=== PATIENT | male | born 1930 | race Caucasian/White ===

== ENCOUNTER 2019-11-28 16:45 | Inpatient (IN) | payer OTHER ==
[~2019-11-28] VITALS: Ht 193 cm; Wt 108.9 kg
[2019-11-28 17:00] VITALS: BP 159/87
--- NOTE | 2019-11-28 19:30 | NUR ---
The patient, EDD FRANKLIN, 89 y/o, M admitted by BUCKY AGUILERA MD, was given written information regarding hospital policies, unit procedures and contact persons. Valuables were checked and inventoried.
--- NOTE | 2019-11-28 20:00 | NUR ---
Nursing Note: Pt lying in bed with blanket over his head when I entered the room. Pt A/O but forgetful, calm, pleasant, and very talkative. Pt answering questions appropriately although he is [place]. Pt has no teeth, does not wear dentures or hearing aids but does wear glasses. Pt reports that he would like to "learn to walk with a walker" while he is here, also reports that he has a Master's Degree in communication and he spent 40 years in the [employer]. Pt currently denies SI but does report that he has been more depressed over the past couple of months and is angry with his sister for selling his house and car. Pt has wounds and excoriation to his coccyx, pictures obtained using the KISS protocol and wound consult ordered. Pt incontinent of B/B, wearing pull up brief currently. COVID swab obtained and sent to lab for testing. Orders obtained from Dr. Chu for admission and medications. Pt compliant with HS medications administered whole. Pt currently resting quietly in bed with eyes closed.
[2019-11-28] MEDS ORDERED: ACETAMINOPHEN 325 MG TABLET PO PRN (21:15)
[2019-11-28] MEDS ORDERED: traZODone 50 MG TABLET. PO PRN (21:15)
[2019-11-28] MEDS ORDERED: TRAM50TA PO (21:23)
[2019-11-28] MEDS ORDERED: ACET325T21 PO (21:23)
[2019-11-28] MEDS ORDERED: MULT-245 PO (21:23)
[2019-11-28] MEDS ORDERED: CLOT15CR23 TP (21:23)
[2019-11-28] MEDS ORDERED: CITA10TA8 PO (21:23)
[2019-11-28] MEDS ORDERED: TAMS0.4C97 PO (21:23)
[2019-11-28] MEDS ORDERED: TRAZ-120 PO ×2 (21:23)
[2019-11-28] MEDS ORDERED: MAG HYDROX/AL HYDROX/SIMETH 30 ML ORAL.SUSP PO PRN (21:30)
[2019-11-28] MEDS ORDERED: MAGNESIUM HYDROXIDE 2,400 MG/30 ML ORAL.SUSP. PO PRN (21:30)
[2019-11-28] MEDS ORDERED: METHYL SALICYLATE/MENTHOL TOPICAL OINTMENT 57GM TUBE. TP PRN (21:30)
--- NOTE | 2019-11-28 21:57 | PDOC ---
Exam Note: Nick Note: Please also refer to the separate dictated note~for this date of service dictated separately.~Patient seen individually. Discussed the patient with Nursing staff reviewed the chart.~Reviewed interim history and current functioning. Reviewed vital signs,~Labs/ Radiology~and current medications noted below. Continue current treatment with the changes noted in the dictated addendum note Assessment: Vital Signs/I&O: Vital Signs Date Time Temp Pulse Resp B/P (MAP) Pulse Ox O2 Delivery O2 Flow Rate FiO2 11/28/19 17:00 98.2 76 18 159/87 (111) 98 Room Air Current Medications: I have reviewed the current psychotropics carefully including drug interactions. Risk benefit ratio favors no change other than as noted in my dictated progress note. RACHEL SHAH MD Nov 28, 2019 21:57
[2019-11-28] MEDS ORDERED: traZODone 50 MG TABLET. PO SCH (22:00)
[2019-11-28] MEDS ORDERED: Influenza vaccine per PROTOCOL. MC PRN (23:00)
[2019-11-29] MEDS: traMADol 50 MG TABLET PO PRN ×2 (05:08→23:36)
--- NOTE | 2019-11-29 05:22 | EKG ---
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
[2019-11-29 06:04] VITALS: BP 120/58
[2019-11-29 06:06] LABS: BACTERIA,URINE MANY /HPF (0-FEW); BILIRUBIN,URINE NEG (NEG); CLARITY,URINE CLEAR; COLOR,URINE YELLOW; GLUCOSE,URINE NEG (NEG); NITRITE,URINE NEG (NEG); RBC,URINE 0 /HPF (0-2); SQUAMOUS EPITHELIAL CELL,UR OCC /LPF; UROBILINOGEN,URINE 0.2 mg/dL (0.2 mg/dL)
[2019-11-29 06:34] LABS: BASO # 0.1 x10^3/uL (0.0-0.2); BASO % 1 % (0-3); EOS # 0.2 x10^3/uL (0.0-0.7); EOS % 4 % (0-3); HEMATOCRIT 38.2 % (39.0-53.0); HEMOGLOBIN 12.7 g/dL (13.0-17.5); LYMPH # 1.5 x10^3/uL (1.0-4.8); LYMPH % 29 % (24-48); MEAN CORPUSCULAR HEMOGLOBIN 33 pg (25-35); MEAN CORPUSCULAR HGB CONC 33 g/dL (31-37); MEAN CORPUSCULAR VOLUME 98 fL (79-100); MONO # 0.5 x10^3/uL (0.0-1.1); MONO % 9 % (0-9); NEUT # 2.9 x10^3uL (1.8-7.7); NEUT % 57 % (31-73); PLATELET COUNT 137 x10^3/uL (140-400); RED BLOOD COUNT 3.88 x10^6/uL (4.30-5.70); WHITE BLOOD COUNT 5.1 x10^3/uL (4.0-11.0)
[2019-11-29 06:49] LABS: ALBUMIN 3.1 g/dL (3.4-5.0); ALBUMIN/GLOBULIN RATIO 0.8 (1.0-1.7); CALCIUM 8.4 mg/dL (8.5-10.1); CREATININE 1.2 mg/dL (0.7-1.3); GFR 57.3; POTASSIUM 3.6 mmol/L (3.5-5.1); TOTAL BILIRUBIN 1.3 mg/dL (0.2-1.0)
--- NOTE | 2019-11-29 08:42 | NUR ---
LUCIA contacted Talia, planning coordinator at the [facility], who indicated that Moe's entire stay no mater what unit will be covered under the same authorization/consult number as an "episode of care." Consult number is [id number]. Talia will call LUCIA back this afternoon once authorization number is issued. Addendum: 11/29/19 at 1532 by ALLEN MYERS Talia phoned back and provided authorization number as [id number]. LUCIA notified registration.
[2019-11-29] MEDS ORDERED: CITALOPRAM 10 MG TABLET. PO SCH (09:00)
[2019-11-29] MEDS ORDERED: FLU VACC QS 2020-21(6MOS+)/PF 0.5 ML SYRINGE. VAX IM ONE (09:00)
[2019-11-29] MEDS: MULTIVITAMIN with MINERAL TABLET. PO SCH (09:23)
[2019-11-29] MEDS: CLOTRIMAZOLE 1% TOPICAL CREAM 30GM TUBE. TP SCH ×2 (09:23→20:10)
[2019-11-29] MEDS: TAMSULOSIN 0.4 MG CAP.ER.24H. PO SCH (09:23)
--- NOTE | 2019-11-29 10:28 | HP ---
ADMIT DATE: 11/28/2019 ADMISSION HISTORY AND PHYSICAL ATTENDING PHYSICIAN: Dr. Aguilera. HISTORY OF PRESENT ILLNESS: The patient is a pleasant 89-year-old gentleman from [facility]. [facility] He [facility] to go to the [facility]. He is admitted to the medical floor for COVID-19 swab, a 48-hour hold until the tests are negative. We are happy to help out and see him for a medical evaluation. He is pleasantly confused. He is retired from the [employer]. 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 PAST MEDICAL HISTORY: Significant for diabetes, benign prostatic hypertrophy, degenerative arthritis, multiple surgeries on his knees and ankle, hyperlipidemia and dementia. He has been aggressive, uncooperative, somewhat paranoid, suicidal ideations and as well homicidal ideation, no active plans. He is declining care. He was scheduled to go to the Behavioral Unit. He has been seen in the [place] [facility] in the past. ALLERGIES: He has no known drug allergies. CURRENT MEDICATIONS: Include Tylenol, Celexa 15 mg daily, multivitamin, Flomax and trazodone at bedtime. SOCIAL HISTORY: He is a nonsmoker, nondrinker. He has had multiple surgeries on his knees and on his ankle. FAMILY HISTORY: Unobtainable. REVIEW OF SYSTEMS: Unobtainable. He was cooperative and fairly alert when I saw him, but remains confused. OBJECTIVE FINDINGS: GENERAL: When I saw him, this was a pleasant elderly gentleman. INITIAL VITAL SIGNS: Showed a blood pressure of 120/58 mmHg, pulse is 76 and regular, temperature 98.2 degrees Fahrenheit, oxygen saturation 95% on room air. HEENT: Head is without trauma. Pupils are reactive. Sclerae nonicteric. The oropharynx is clear. NECK: Supple. No bruits. LUNGS: Clear. CARDIOVASCULAR: Showed regular heart tones. No gallops. ABDOMEN: Soft, obese, protuberant. No organomegaly. Bowel sounds are normoactive. EXTREMITIES: Showed degenerative changes of both knees and ankles. There is no swelling or edema. NEUROLOGIC: Focally intact. Speech is fluent. Cranial nerves are intact. PERTINENT LABORATORY STUDIES: His hemoglobin is maintained at 12.7 g/dL with a white count of 5100. Electrolytes are within normal range. Nonfasting blood sugar 109. Transaminases were all within normal range. Creatinine is 1.2 mg/dL. ASSESSMENT: 1. This 89-year-old gentleman has behavioral issues related to dementia. He is from a correction in [place], [place]. 2. Suicidal ideations without any active plans. 3. Degenerative arthritis. 4. Essential hypertension. 5. Benign prostatic hypertrophy. PLAN: 1. The home meds were continued. 2. We shall await for the COVID swab test. 3. He will go to the [facility] when cleared. BUCKY AGUILERA MD DR: KATHERIN/hayley JOB#: [id number] / [id number] RACHEL Fernández MD
[2019-11-29 11:11] VITALS: BP 108/66
[2019-11-29 14:47] LABS: THYROID STIM HORMONE (TSH) 0.89 uIU/mL (0.358-3.740)
[2019-11-29 15:00] VITALS: BP 104/58
--- NOTE | 2019-11-29 16:26 | NUR ---
Wound Care Wound Type/Assessment: Rash to buttocks, Pt has maceration and IAD to bilateral buttocks. Red and blanchable. Treatment Recommendations/Plan: Applied A&D ointment, reapply BID and PRN Education provided: PU prevention, WC POC Offloading surface/device: TQ2H Recommended Referrals/Tests: none Discharge Recommendations for dressings: continue as above noted
[2019-11-29] MEDS ORDERED: VITS A & D/LANOLIN TOPICAL OINTMENT 42GM TUBE. TP PRN (16:30)
[2019-11-29] MEDS ORDERED: traZODone 50 MG TABLET. PO PRN (19:15)
[2019-11-29] MEDS: VITS A & D/LANOLIN TOPICAL OINTMENT 42GM TUBE. TP SCH (20:09)
[2019-11-29] MEDS: NYSTATIN TOPICAL POWDER 15GM BOTTLE. TP SCH (20:10)
--- NOTE | 2019-11-29 20:38 | CONS ---
DATE OF CONSULTATION: 11/28/2019 PSYCHIATRIC CONSULTATION This is late entry, date of service 11/28/2019, covers elements not covered in my initial note. I discussed with nursing staff, reviewed the chart, previously discussed with Nahomy Marcus, software development coordinator after the patient was referred to us from the [facility] in [place] due to suicidal ideation, homicidal ideation while he was residing at the [facility]. The patient appeared more depressed, hopeless, helpless, worthless, was threatening to kill his sister who was disposing of his property. He was aggressive towards uncooperative, refusing cares and meals, paranoid. He had failed outpatient psychiatric interventions resulting in this referral. CHIEF COMPLAINT: "Yes, I get angry." The patient was admitted to the custodial unit per Dr. Chu to be tested negative for COVID before he could transition to the [facility] and I have been asked to consult. HISTORY OF PRESENT ILLNESS: The patient has a history of worsening symptoms of depression, paranoia, marked agitation, aggression, threatening to end his life and to kill his sister who is his power of licensed social worker. He is reasonably oriented and is frustrated living at the halfway while his belongings are being sold. He has had sleep and appetite changes. No clear history of bipolar disorder. PAST PSYCHIATRIC HISTORY: As above. MEDICAL HISTORY: Positive for type 2 diabetes mellitus, diet controlled; BPH; osteoarthritis; hard of hearing. CODE STATUS: DNR. DRUG ALLERGIES: Negative. ACCU-CHEKS: Negative. CURRENT PSYCHOTROPICS: Celexa 5 mg a day, increasing to 10 mg a day; trazodone 50 mg at bedtime and 25 mg at bedtime p.r.n. FAMILY HISTORY: Noncontributory. SOCIAL HISTORY: No history of alcohol, drug abuse, physical, sexual or elder abuse. He is not known to be a perpetrator. REACTION TO HOSPITALIZATION: The patient accepting of it. ASSETS: Stable living at the halfway and support from the [place]. REVIEW OF SYSTEMS: Ambulation impaired, in wheelchair. No CV, , pulmonary, eye, ENT system symptoms on review. He is hard of hearing. MENTAL STATUS EXAMINATION: The patient is oriented to himself. Speech is coherent, has some latency. Abstraction fair, computation impaired, language function intact, attention span short. Mood and affect depressed, anxious, paranoid. No active suicidal or homicidal ideation when I questioned him in evening of 11/28/2019. IMPRESSION: Major depressive disorder with psychotic features; impulse control disorder; anxiety disorder, unspecified. Rest as above. RECOMMENDATIONS: From a psychiatric standpoint, continue current medications. Observe baseline, adjust as clinically indicated. Have the COVID negative screen confirmed and then transition into the [facility]. Rest will be determined once he arrives on the [facility]. RACHEL SHAH MD DR: GARETT/hayley JOB#: [id number] / [id number]
[2019-11-29] MEDS ORDERED: MIRTAZAPINE ODT 15 MG TAB.RAPDIS. PO SCH (21:00)
[2019-11-29 21:34] VITALS: BP 107/64
--- NOTE | 2019-11-29 22:33 | PDOC ---
Exam Note: Nick Note: Please also refer to the separate dictated note~for this date of service dictated separately.~Patient seen individually. Discussed the patient with Nursing staff reviewed the chart.~Reviewed interim history and current functioning. Reviewed vital signs,~Labs/ Radiology~and current medications noted below. Continue current treatment with the changes noted in the dictated addendum note Assessment: Vital Signs/I&O: Vital Signs Date Time Temp Pulse Resp B/P (MAP) Pulse Ox O2 Delivery O2 Flow Rate FiO2 11/29/19 21:34 98.0 80 18 107/64 (78) 95 Room Air I & O 11/28/19 11/28/19 11/29/19 15:00 23:00 07:00 Output Total 400 ml Balance -400 ml Labs: Laboratory Tests Test 11/29/19 05:20 11/29/19 06:20 Urine Collection Type Unknown Urine Color Yellow Urine Clarity Clear Urine pH 5.5 Urine Specific [place] 1.025 Urine Protein Neg (NEG-TRACE) Urine Glucose (UA) Neg mg/dL (NEG) Urine Ketones (Stick) Neg mg/dL (NEG) Urine Blood Mod (NEG) Urine Nitrite Neg (NEG) Urine Bilirubin Neg (NEG) Urine Urobilinogen Dipstick 0.2 mg/dL (0.2 mg/dL) Urine Leukocyte Esterase Trace (NEG) Urine RBC 0 /HPF (0-2) Urine WBC 5-10 /HPF (0-4) Urine Squamous Epithelial Cells Occ /LPF Urine Bacteria Many /HPF (0-FEW) White Blood Count 5.1 x10^3/uL (4.0-11.0) Red Blood Count 3.88 x10^6/uL (4.30-5.70) L Hemoglobin 12.7 g/dL (13.0-17.5) L Hematocrit 38.2 % (39.0-53.0) L Mean Corpuscular Volume 98 fL (79-100) Mean Corpuscular Hemoglobin 33 pg (25-35) Mean Corpuscular Hemoglobin Concent 33 g/dL (31-37) Red Cell Distribution Width 13.0 % (11.5-14.5) Platelet Count 137 x10^3/uL (140-400) L Neutrophils (%) (Auto) 57 % (31-73) Lymphocytes (%) (Auto) 29 % (24-48) Monocytes (%) (Auto) 9 % (0-9) Eosinophils (%) (Auto) 4 % (0-3) H Basophils (%) (Auto) 1 % (0-3) Neutrophils # (Auto) 2.9 x10^3uL (1.8-7.7) Lymphocytes # (Auto) 1.5 x10^3/uL (1.0-4.8) Monocytes # (Auto) 0.5 x10^3/uL (0.0-1.1) Eosinophils # (Auto) 0.2 x10^3/uL (0.0-0.7) Basophils # (Auto) 0.1 x10^3/uL (0.0-0.2) D-Dimer (Noni) 9.14 mg/L (0.00-0.50) H Sodium Level 141 mmol/L (136-145) Potassium Level 3.6 mmol/L (3.5-5.1) Chloride Level 106 mmol/L (98-107) Carbon Dioxide Level 25 mmol/L (21-32) Anion Gap 10 (6-14) Blood Urea Nitrogen 11 mg/dL (8-26) Creatinine 1.2 mg/dL (0.7-1.3) Estimated GFR (Cockcroft-Gault) 57.3 BUN/Creatinine Ratio 9 (6-20) Glucose Level 109 mg/dL (70-99) H Calcium Level 8.4 mg/dL (8.5-10.1) L Magnesium Level 2.0 mg/dL (1.8-2.4) Iron Level 80 ug/dL (65-175) Total Iron Binding Capacity 216 ug/dL (250-450) L Iron Saturation 37 % (15-34) H Total Bilirubin 1.3 mg/dL (0.2-1.0) H Aspartate Amino Transferase (AST) 17 U/L (15-37) Alanine Aminotransferase (ALT) 14 U/L (16-63) L Alkaline Phosphatase 67 U/L (46-116) Total Protein 7.0 g/dL (6.4-8.2) Albumin 3.1 g/dL (3.4-5.0) L Albumin/Globulin Ratio 0.8 (1.0-1.7) L Triglycerides Level 75 mg/dL (0-150) Cholesterol Level 123 mg/dL (0-200) LDL Cholesterol, Calculated 68 mg/dL (0-100) VLDL Cholesterol, Calculated 15 mg/dL (0-40) Non-HDL Cholesterol Calculated 83 mg/dL (0-129) HDL Cholesterol 40 mg/dL (40-60) Cholesterol/HDL Ratio 3.0 Vitamin B12 Level 475 pg/mL (247-911) 25-Hydroxy Vitamin D Total 45.7 ng/mL (30-100) Thyroid Stimulating Hormone (TSH) 0.890 uIU/mL (0.358-3.740) Treponema pallidum Antibody Nonreactive (Nonreactive) Current Medications: Meds: Current Medications Medications (Trade) Dose Ordered Sig/Jovita Route PRN Reason Start Time Stop Time Status Last Admin Dose Admin Citalopram Hydrobromide (CeleXA) 5 mg DAILY PO 11/29/19 09:00 11/29/19 19:13 DC 11/29/19 09:23 Clotrimazole (Lotrimin) 1 lonny BID TP 11/29/19 09:00 11/29/19 20:10 Tamsulosin HCl (Flomax) 0.4 mg DAILY PO 11/29/19 09:00 11/29/19 09:23 Multivitamins/ Calcium (Thera-M Plus) 1 tab DAILY PO 11/29/19 09:00 11/29/19 09:23 Influenza Virus Vaccine Quadrival (Fluzone Quad Syringe) 0.5 ml ONCE ONCE VAX IM 11/29/19 09:00 11/29/19 09:01 DC 11/29/19 09:25 Nystatin (Nystop) 1 lonny BID TP 11/29/19 21:00 11/29/19 20:10 Vitamin A/Vitamin D (Vitamin A & D Ointment) 1 lonny BID TP 11/29/19 21:00 11/29/19 20:09 Trazodone HCl (Desyrel) 50 mg PRN QHS PRN PO insomnia 11/29/19 19:15 11/29/19 20:09 Mirtazapine (Remeron Paula-Tab) 7.5 mg QHS PO 11/29/19 21:00 11/29/19 20:10 I have reviewed the current psychotropics carefully including drug interactions. Risk benefit ratio favors no change other than as noted in my dictated progress note. Diagnosis: Problems: (1) Major depressive disorder with psychotic features (2) Anxiety disorder, unspecified (3) Impulse control disorder, unspecified RACHEL SHAH MD Nov 29, 2019 22:33
[2019-11-29 23:06] LABS: HEMOGLOBIN A1C 6.2 % (4.8-5.6); THYROXINE 6.7 ug/dL (4.5-12.0)
--- NOTE | 2019-11-29 23:59 | NUR ---
Patient is awake in bed on assumption of care. He is in pleasant spirits. Calm, cooperative and compliant with cares, assessments and medications taken whole. A&D ointment applied to coccyx area per wound care recommendation. Patient cooperative with turning and participating. States "They have been putting some medicine on that area and now it just tingles instead of hurting." Patient positioned on his side to offset pressure on the area. No agitation. Patient denies any SI/HI. Complained of pain in bilateral legs and requested pain medicine. Tramadol given at 2330, pending effect. Patient remains awake in his room at present time. Will continue to monitor.
--- NOTE | 2019-11-30 06:36 | PDOC ---
Exam Note: Nick Note: This note is a late entry for 11/29/2019 covers elements not covered in my initial note. Subjective: The patient was reviewed on telehealth rounds in the evening of 11/29/2019 with Mike MCKEON. Discussed with nursing staff, reviewed the chart. The patient has been doing better. Denies suicidal ideation. He remains somewhat withdrawn. Review of Systems: No CV, , pulmonary, eye system symptoms on review. Gait unsteady in wheelchair. He is heard of hearing. Mental Status Exam: Reasonably oriented. Speech is coherent. Abstraction fair. Computation impaired. Language function impaired. Mood and affect depressed. Laboratory Data: Reviewed. Impression: Major depressive disorder. Anxiety disorder unspecified Plan: Change Celexa to Zoloft 50 mg a day. Change trazodone 50mg h.s. to 50 mg h.s. p.r.n. insomnia and start Remeron 7.5 mg p.o. h.s. We will make further adjustments as clinically indicated. Assessment: Vital Signs/I&O: Vital Signs Date Time Temp Pulse Resp B/P (MAP) Pulse Ox O2 Delivery O2 Flow Rate FiO2 11/29/19 23:36 Room Air 11/29/19 21:34 98.0 80 18 107/64 (78) 95 I & O 0 11/29/19 11/29/19 11/30/19 15:00 23:00 07:00 Intake Total 680 ml 720 ml 0 ml Balance 680 ml 720 ml 0 ml Current Medications: Meds: Current Medications Medications (Trade) Dose Ordered Sig/Jovita Route PRN Reason Start Time Stop Time Status Last Admin Dose Admin Citalopram Hydrobromide (CeleXA) 5 mg DAILY PO 11/29/19 09:00 11/29/19 19:13 DC 11/29/19 09:23 Clotrimazole (Lotrimin) 1 lonny BID TP 11/29/19 09:00 11/29/19 20:10 Tamsulosin HCl (Flomax) 0.4 mg DAILY PO 11/29/19 09:00 11/29/19 09:23 Multivitamins/ Calcium (Thera-M Plus) 1 tab DAILY PO 11/29/19 09:00 11/29/19 09:23 Influenza Virus Vaccine Quadrival (Fluzone Quad Syringe) 0.5 ml ONCE ONCE VAX IM 11/29/19 09:00 11/29/19 09:01 DC 11/29/19 09:25 Nystatin (Nystop) 1 lonny BID TP 11/29/19 21:00 11/29/19 20:10 Vitamin A/Vitamin D (Vitamin A & D Ointment) 1 lonny BID TP 11/29/19 21:00 11/29/19 20:09 Trazodone HCl (Desyrel) 50 mg PRN QHS PRN PO insomnia 11/29/19 19:15 11/29/19 20:09 Mirtazapine (Remeron Paula-Tab) 7.5 mg QHS PO 11/29/19 21:00 11/29/19 20:10 I have reviewed the current psychotropics carefully including drug interactions. Risk benefit ratio favors no change other than as noted in my dictated progress note. Diagnosis: Problems: (1) Impulse control disorder, unspecified (2) Anxiety disorder, unspecified (3) Major depressive disorder with psychotic features RACHEL SHAH MD Nov 30, 2019 06:36
[2019-11-30 06:41] VITALS: BP 118/61
--- NOTE | 2019-11-30 06:47 | NUR ---
Pt was pleasant in all interactions throughout shift. Pt was in bed and slept other than when I entered the room to assess vital signs or perform repositioning. When turning pt. was able to turn self side to side with minimal assistance. During corinna care and brief changes Pt. had bilateral redness in groin but skin was intact. Cleansed with green incontinence wipes and allowed to dry before applying more niastatin powder. A&D ointment was applied to pt. backside between cheeks. Skin was broken with some bleeding but was mostly scabbed over. light blood spots were seen on the green incontinence wipes after wiping pt. Pt. stated "my bottom feels much better than it did. It doesn't hurt anymore but it does tingle" RN was present and is aware. Pt. called at one point in the telesales specialist and was complaining of pain in right leg and requested a pain pill from nurse, I notified RN at that time.
[2019-11-30] MEDS: TAMSULOSIN 0.4 MG CAP.ER.24H. PO SCH (08:40)
[2019-11-30] MEDS: MULTIVITAMIN with MINERAL TABLET. PO SCH (08:40)
[2019-11-30] MEDS: NYSTATIN TOPICAL POWDER 15GM BOTTLE. TP SCH (08:41)
[2019-11-30] MEDS: CLOTRIMAZOLE 1% TOPICAL CREAM 30GM TUBE. TP SCH (08:41)
[2019-11-30] MEDS: VITS A & D/LANOLIN TOPICAL OINTMENT 42GM TUBE. TP SCH (08:41)
[2019-11-30] MEDS ORDERED: SERTRALINE 50 MG TABLET. PO SCH (09:00)
--- NOTE | 2019-11-30 10:21 | NUR ---
Pt is cooperative, compliant and calm but needs frequent reminders for safety. He is compliant with his medication and assessment. No agitation, no aggression, no hallucinations or delusions noted. Denies SI/HI.
--- NOTE | 2019-11-30 12:17 | PN ---
DATE: 11/30/2019 ATTENDING PHYSICIAN: Dr. Aguilera. SUBJECTIVE: No new complaints. He is alert, eating lunch. Appetite is fair. OBJECTIVE FINDINGS: VITAL SIGNS: Blood pressure today is 118/61 mmHg, temperature is 97.9 degrees Fahrenheit, he is on room air and saturation is 93%. HEENT: Head is without trauma. Pupils are reactive. Sclerae nonicteric. Oropharynx clear. NECK: Supple, no bruits. LUNGS: Otherwise clear. CARDIOVASCULAR: Showed regular heart tones. No gallops. Peripheral pulses are palpable and full. ABDOMEN: Soft, no guarding. EXTREMITIES: Without edema. NEUROLOGIC: He is focally intact. Speech is fluent. SKIN: Warm and dry. LABORATORY DATA: The hemoglobin is 12.7 g/dL with a white count of 5100. COVID-19 swab is still pending. Treponema pallidum antibody is nonreactive. Urinalysis is clear. ASSESSMENT: 1. An 89-year-old gentleman with behavioral issues related to dementia. He is from a [facility] in [place], [place]. 2. Suicidal ideation without any active plans. 3. Degenerative arthritis. 4. Essential hypertension. 5. Benign prostatic hypertrophy. PLAN: 1. Medications reviewed. 2. Await COVID swab test. 3. He will go to the [facility] when cleared. BUCKY AGUILERA MD DR: KATHERIN/hayley JOB#: [id number] / [id number]
--- NOTE | 2019-11-30 13:40 | NUR ---
Dr. Chu informed of neg COVID, pt will be transferred to [facility]. Also informed of D-Dimer of 9.14 stated it is not clinically relevant.
--- NOTE | 2019-12-01 03:01 | DS ---
DATE OF DISCHARGE: 11/30/2019 ATTENDING PHYSICIAN: Dr. Aguilera. FINAL DISCHARGE DIAGNOSES: 1. An 89-year-old gentleman with behavioral issues. 2. Underlying dementia. 3. Suicidal ideation without any actual plans. 4. Degenerative arthritis. 5. Essential hypertension. 6. Benign prostatic hypertrophy. HISTORY AND PHYSICAL: This is a pleasant 89-year-old gentleman from [facility]. [facility]. He has had behavioral issues and possible suicidal ideations. He was referred to go to the [facility] and he was sent to the medical floor for COVID-19 evaluation and screening. PAST MEDICAL HISTORY: Please refer to the dictated note. PHYSICAL EXAMINATION: Please see the dictated note. PERTINENT LABORATORY AND X-RAY STUDIES: The COVID-19 serology came back negative. Treponema pallidum syphilis antibody was negative. Hemoglobin maintained at 12.7 g/dL with a white count of 5100. Electrolytes, BUN and creatinine were within normal range. Hemoglobin A1c was 6.2. COURSE IN THE HOSPITAL: The patient was admitted. He was started on home meds, diet was advanced and he did well. He had no other symptoms. He was very cooperative. He was not agitated. On the third hospital day, his COVID swab came back negative. He was ready for discharge to the [facility]. DISCHARGE MEDICATIONS: His discharge meds will include his Tylenol, Celexa ____ mg total daily, clotrimazole cream, multivitamin, Flomax 0.4 mg daily, tramadol and trazodone 75 mg at bedtime. His prognosis is fair. He has a DNR per advanced directive status. He was discharged from our hospital to be readmitted to the [facility]. BUCKY AGUILERA MD DR: KATHERIN/hayley JOB#: [id number] / [id number] RACHEL Fernández MD
[2019-12-05] MEDS ORDERED: CITALOPRAM 10 MG TABLET. PO SCH (09:00)
== END 2019-11-30 16:10 | DRG 880 ==
LOC: LND 16:45
PROVIDERS: ADMIT Hospitalist; ATTEND Hospitalist
DX: R45.851 Suicidal ideations (principal); F32.3 Major depressive disorder, single episode, severe with psychotic features; I10 Essential (primary) hypertension; M19.90 Unspecified osteoarthritis, unspecified site; N40.0 Benign prostatic hyperplasia without lower urinary tract symptoms; Z20.828 Contact with and (suspected) exposure to other viral communicable diseases; Z66 Do not resuscitate; F03.90 Unspecified dementia, unspecified severity, without behavioral disturbance, psychotic disturbance, mood disturbance, and anxiety; F63.9 Impulse disorder, unspecified; F41.9 Anxiety disorder, unspecified
CPT/HCPCS: 36415; 80053; 80061; 81001; 82306; 82607; 83036; 83540; 83550; 83735; 84436; 84443; 84480; 85025; 85379; 86592; 87086; 90471; 93005; 90686; U0003-CS

== ENCOUNTER 2019-11-30 19:11 | Inpatient (IN) | payer OTHER ==
[~2019-11-30] VITALS: Ht 193 cm; Wt 112.4 kg
[~2019-11-30 19:11] MED LIST: ACET325T21 PO; CITA10TA8 PO; CLOT15CR23 TP; MULT-245 PO; TAMS0.4C97 PO; TRAM50TA PO; TRAZ-120 PO
[2019-11-30 19:30] VITALS: BP 112/62
[2019-11-30] MEDS ORDERED: MAG HYDROX/AL HYDROX/SIMETH 30 ML ORAL.SUSP PO PRN ×2 (19:30→19:45)
[2019-11-30] MEDS ORDERED: ACETAMINOPHEN 325 MG TABLET PO PRN ×2 (19:30→19:45)
[2019-11-30] MEDS ORDERED: MAGNESIUM HYDROXIDE 2,400 MG/30 ML ORAL.SUSP. PO PRN ×2 (19:30→19:45)
[2019-11-30] MEDS ORDERED: traMADol 50 MG TABLET PO PRN (19:30)
[2019-11-30] MEDS ORDERED: traZODone 50 MG TABLET. PO PRN ×2 (19:30)
[2019-11-30] MEDS ORDERED: METHYL SALICYLATE/MENTHOL TOPICAL OINTMENT 57GM TUBE. TP PRN (19:30)
--- NOTE | 2019-11-30 19:30 | NUR ---
Admission Note with Justification for Admission to [facility] Patient admitted to [facility] for protective oversight for emergency stabilization of acute psychiatric crisis. Pt admitted from: [facility] Mode of arrival: EMS Accompanied By: EMS Precipitating behaviors that initiated intake and admission: making SI/HI statements toward self and sister (financial DPOA), aggressive towards staff, uncooperative, paranoid, refusing cares and meals Description of failure of out patient attempts at stabilization in previous setting list behavior and medication trials: 15 minute checks, items removed from room, Celexbina, Trazadone, 1:1 for safety, urinalysis Behaviors and assessment findings upon admission: patient pleasant, cooperative, talkative. Denies SI/HI at present time Plan: Admit for protective oversight for adjustment and stabilization of medications, behaviors and mood. Intense treatment regimen including groups, medication adjustments, therapy, consistent regimen for ADL's, self care, and sleep hygiene. Daily monitoring by Inpatient staff, Psychiatry, and Medical Physician.
[2019-11-30] MEDS: NYSTATIN TOPICAL POWDER 15GM BOTTLE. TP SCH (20:29)
[2019-11-30] MEDS: MIRTAZAPINE ODT 15 MG TAB.RAPDIS. PO SCH (20:29)
--- NOTE | 2019-11-30 21:49 | PDOC ---
Exam Note: Nick Note: Please also refer to the separate dictated note~for this date of service dictated separately.~Patient seen individually. Discussed the patient with Nursing staff reviewed the chart.~Reviewed interim history and current functioning. Reviewed vital signs,~Labs/ Radiology~and current medications noted below. Continue current treatment with the changes noted in the dictated addendum note Current Medications: Meds: Current Medications Medications (Trade) Dose Ordered Sig/Jovita Route PRN Reason Start Time Stop Time Status Last Admin Dose Admin Mirtazapine (Remeron Paula-Tab) 7.5 mg QHS PO 11/30/19 21:00 11/30/19 20:29 Nystatin (Nystop) 1 lonny BID TP 11/30/19 21:00 11/30/19 20:29 I have reviewed the current psychotropics carefully including drug interactions. Risk benefit ratio favors no change other than as noted in my dictated progress note. Diagnosis: Problems: (1) Major depressive disorder with psychotic features (2) Impulse control disorder, unspecified (3) Anxiety disorder, unspecified RACHEL SHAH MD Nov 30, 2019 21:49
--- NOTE | 2019-11-30 23:59 | NUR ---
Patient is awake in bed on assumption of care. He is pleasant, interactive, appropriate. Compliant with assessments and medications taken whole. Cooperative with HS care. No agitation. Patient denies any pain or discomfort. Denies SI/HI. He appears to be sleeping comfortably at present time. Will continue to monitor.
--- NOTE | 2019-12-01 00:47 | NUR ---
Pt cooperative and social with PM interaction. While turning pt assisted and held position for corinna care. Pt stated "i'm freezing, its so cold. Can you turn the air off" Told pt that the fan/heater had to stay on, but opened curtains so air would blow up and not out and towards pt. Pt. was satisfied with this. Provided pt. with additional blanket.
[2019-12-01 05:50] VITALS: BP 127/78
--- NOTE | 2019-12-01 06:07 | EKG ---
[address] [address] Test Date: 2019-12-01 Test Time: 05:01:14 Pat Name: EDD FRANKLIN Department: Room: [facility] 1 Gender: M Time Study Engineer: : [id number] Requested By: RACHEL SHAH Order Number: [id number] Reading MD: Measurements Intervals [place] Rate: 68 P: 45 IA: 186 QRS: 13 QRSD: 94 T: 24 QT: 394 QTc: 424 Interpretive Statements SINUS RHYTHM LOW LIMB LEAD VOLTAGE NO SPECIFIC ECG ABNORMALITIES RI6.01 Compared to ECG 11/29/2019 05:10:57 Left-axis deviation no longer present
--- NOTE | 2019-12-01 06:43 | PDOC ---
Exam Note: Nick Note: PSYCHIATRIC ADMISSION HISTORY/EVALUATION This note is a late entry for 11/30/2019 covers elements not covered in my initial note. Identifying Data: The patient is an 89-year-old male who was referred to us from the [facility] in [place] due to suicidal ideation, homicidal ideation, is transitioned from [facility] to the [facility] after he returned COVID negative per Dr. Chu. Consultation was done on the [facility] unit and is being incorporated as part of this dictation since that information has not changed. History of Present Illness: The patient has a history of worsening symptoms of depression, paranoia, marked agitation, aggression, threatening to send his life and to kill his sister who is his power of civil attorney. He is reasonably oriented and frustrated living at the [facility]. He has had sleep and appetite changes. No clear history of bipolar disorder. Subjectively, he was reviewed on telehealth rounds in the evening of 11/30/2019 with Layla MCKEON. Discussed with nursing staff, reviewed the chart. He remains hard of hearing, very appreciative of the care he is receiving on [facility]. He does have some short-term cognitive deficits and we will request a neuropsychological testing with Dr. Chaparro for clarification. Past Psychiatric History: As above. Medical History: Positive for type 2 diabetes mellitus, diet controlled, BPH, osteoarthritis, hard of hearing. Code Status: DNR. Allergies: Negative. Accu-Cheks: Negative. Current Psychotropics: Celexa 5 mg a day, increasing to 10 mg a day, trazodone 50 mg at bedtime and 25 mg at bedtime p.r.n. Family History: Non-contributory. Social History: No history of alcohol, drug abuse, physical, sexual, or elder abuse. He is not known to be perpetrator. Review of Systems: Ambulation impaired in wheelchair. No CV, , pulmonary, eye system symptoms on review. Gait unsteady in wheelchair. He is hard of hearing. Mental Status Exam: Reasonably oriented. Speech has some latency, coherent. Abstraction is fair. Computation impaired. Language function impaired. Attention span is short. Mood and affect somewhat withdrawn. Laboratory Data: Reviewed. 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 Impulse control disorder. Rest as above. Plan: No change from initial note. Assessment: Vital Signs/I&O: Vital Signs Date Time Temp Pulse Resp B/P (MAP) Pulse Ox O2 Delivery O2 Flow Rate FiO2 12/01/19 05:50 98.4 72 18 127/78 (94) 95 I & O 11/30/19 11/30/19 12/01/19 15:00 23:00 07:00 Intake Total 120 ml Balance 120 ml Current Medications: Meds: Current Medications Medications (Trade) Dose Ordered Sig/Jovita Route PRN Reason Start Time Stop Time Status Last Admin Dose Admin Mirtazapine (Remeron Paula-Tab) 7.5 mg QHS PO 11/30/19 21:00 11/30/19 20:29 Nystatin (Nystop) 1 lonny BID TP 11/30/19 21:00 11/30/19 20:29 Tramadol HCl (Ultram) 50 mg PRN Q6HRS PRN PO PAIN 11/30/19 19:30 12/01/19 06:04 I have reviewed the current psychotropics carefully including drug interactions. Risk benefit ratio favors no change other than as noted in my dictated progress note. Diagnosis: Problems: (1) Impulse control disorder, unspecified (2) Anxiety disorder, unspecified (3) Major depressive disorder with psychotic features RACHEL SHAH MD Dec 01, 2019 06:43
[2019-12-01] MEDS: MULTIVITAMIN with MINERAL TABLET. PO SCH (08:45)
[2019-12-01] MEDS: SERTRALINE 50 MG TABLET. PO SCH (08:45)
[2019-12-01] MEDS: CLOTRIMAZOLE 1% TOPICAL CREAM 30GM TUBE. TP SCH ×2 (08:45→20:50)
[2019-12-01] MEDS: TAMSULOSIN 0.4 MG CAP.ER.24H. PO SCH (08:45)
[2019-12-01] MEDS: VITS A & D/LANOLIN TOPICAL OINTMENT 42GM TUBE. TP SCH ×2 (08:45→20:50)
[2019-12-01] MEDS: NYSTATIN TOPICAL POWDER 15GM BOTTLE. TP SCH ×2 (08:45→20:50)
--- NOTE | 2019-12-01 10:04 | NUR ---
Patient calm and cooperative today. Patient complaint with medications and assessment.
[2019-12-01 10:12] LABS: BASO # 0.1 x10^3/uL (0.0-0.2); BASO % 1 % (0-3); EOS # 0.3 x10^3/uL (0.0-0.7); EOS % 5 % (0-3); HEMATOCRIT 38.2 % (39.0-53.0); HEMOGLOBIN 12.7 g/dL (13.0-17.5); LYMPH # 1.8 x10^3/uL (1.0-4.8); LYMPH % 32 % (24-48); MEAN CORPUSCULAR HEMOGLOBIN 33 pg (25-35); MEAN CORPUSCULAR HGB CONC 33 g/dL (31-37); MEAN CORPUSCULAR VOLUME 99 fL (79-100); MONO # 0.5 x10^3/uL (0.0-1.1); MONO % 9 % (0-9); NEUT # 2.9 x10^3uL (1.8-7.7); NEUT % 52 % (31-73); PLATELET COUNT 126 x10^3/uL (140-400); RED BLOOD COUNT 3.87 x10^6/uL (4.30-5.70); RED CELL DISTRIBUTION WIDTH 13.2 % (11.5-14.5); WHITE BLOOD COUNT 5.5 x10^3/uL (4.0-11.0)
[2019-12-01 10:20] LABS: ALBUMIN 2.9 g/dL (3.4-5.0); ALBUMIN/GLOBULIN RATIO 0.8 (1.0-1.7); CALCIUM 8.4 mg/dL (8.5-10.1); CREATININE 1.3 mg/dL (0.7-1.3); GFR 52.2; POTASSIUM 4.1 mmol/L (3.5-5.1); TOTAL BILIRUBIN 0.9 mg/dL (0.2-1.0); TOTAL PROTEIN 6.7 g/dL (6.4-8.2)
[2019-12-01 16:20] VITALS: BP 114/55
[2019-12-01] MEDS: MIRTAZAPINE ODT 15 MG TAB.RAPDIS. PO SCH (20:49)
--- NOTE | 2019-12-01 22:08 | PDOC ---
Exam Note: Nick Note: Please also refer to the separate dictated note~for this date of service dictated separately.~Patient seen individually. Discussed the patient with Nursing staff reviewed the chart.~Reviewed interim history and current functioning. Reviewed vital signs,~Labs/ Radiology~and current medications noted below. Continue current treatment with the changes noted in the dictated addendum note Assessment: Vital Signs/I&O: Vital Signs Date Time Temp Pulse Resp B/P (MAP) Pulse Ox O2 Delivery O2 Flow Rate FiO2 12/01/19 16:20 98.3 73 18 114/55 (74) 93 12/01/19 08:12 Room Air I & O 11/30/19 11/30/19 12/01/19 15:00 23:00 07:00 Intake Total 120 ml Balance 120 ml Labs: Laboratory Tests Test 12/01/19 09:20 White Blood Count 5.5 x10^3/uL (4.0-11.0) Red Blood Count 3.87 x10^6/uL (4.30-5.70) L Hemoglobin 12.7 g/dL (13.0-17.5) L Hematocrit 38.2 % (39.0-53.0) L Mean Corpuscular Volume 99 fL (79-100) Mean Corpuscular Hemoglobin 33 pg (25-35) Mean Corpuscular Hemoglobin Concent 33 g/dL (31-37) Red Cell Distribution Width 13.2 % (11.5-14.5) Platelet Count 126 x10^3/uL (140-400) L Neutrophils (%) (Auto) 52 % (31-73) Lymphocytes (%) (Auto) 32 % (24-48) Monocytes (%) (Auto) 9 % (0-9) Eosinophils (%) (Auto) 5 % (0-3) H Basophils (%) (Auto) 1 % (0-3) Neutrophils # (Auto) 2.9 x10^3uL (1.8-7.7) Lymphocytes # (Auto) 1.8 x10^3/uL (1.0-4.8) Monocytes # (Auto) 0.5 x10^3/uL (0.0-1.1) Eosinophils # (Auto) 0.3 x10^3/uL (0.0-0.7) Basophils # (Auto) 0.1 x10^3/uL (0.0-0.2) Sodium Level 138 mmol/L (136-145) Potassium Level 4.1 mmol/L (3.5-5.1) Chloride Level 105 mmol/L (98-107) Carbon Dioxide Level 24 mmol/L (21-32) Anion Gap 9 (6-14) Blood Urea Nitrogen 16 mg/dL (8-26) Creatinine 1.3 mg/dL (0.7-1.3) Estimated GFR (Cockcroft-Gault) 52.2 BUN/Creatinine Ratio 12 (6-20) Glucose Level 146 mg/dL (70-99) H Calcium Level 8.4 mg/dL (8.5-10.1) L Total Bilirubin 0.9 mg/dL (0.2-1.0) Aspartate Amino Transferase (AST) 17 U/L (15-37) Alanine Aminotransferase (ALT) 14 U/L (16-63) L Alkaline Phosphatase 64 U/L (46-116) Total Protein 6.7 g/dL (6.4-8.2) Albumin 2.9 g/dL (3.4-5.0) L Albumin/Globulin Ratio 0.8 (1.0-1.7) L Current Medications: Meds: Current Medications Medications (Trade) Dose Ordered Sig/Jovita Route PRN Reason Start Time Stop Time Status Last Admin Dose Admin Clotrimazole (Lotrimin) 1 lonny BID TP 12/01/19 09:00 12/01/19 20:50 Multivitamins/ Calcium (Thera-M Plus) 1 tab DAILY PO 12/01/19 09:00 12/01/19 08:45 Sertraline HCl (Zoloft) 50 mg DAILY PO 12/01/19 09:00 12/01/19 08:45 Tamsulosin HCl (Flomax) 0.4 mg DAILY PO 12/01/19 09:00 12/01/19 08:45 Vitamin A/Vitamin D (Vitamin A & D Ointment) 1 lonny BID TP 12/01/19 09:00 12/01/19 20:50 I have reviewed the current psychotropics carefully including drug interactions. Risk benefit ratio favors no change other than as noted in my dictated progress note. Diagnosis: Problems: (1) Impulse control disorder, unspecified (2) Anxiety disorder, unspecified (3) Major depressive disorder with psychotic features RACHEL SHAH MD Dec 01, 2019 22:08
--- NOTE | 2019-12-01 23:59 | NUR ---
Patient is in his room on assumption of care. He is in pleasant spirits, sitting in bed, awake. Calm, cooperative and compliant with assessments, cares, and medications taken whole. No agitation. Denies any pain or discomfort. Denies SI/HI. Patient appears to be sleeping at present time. Will continue to monitor.
[2019-12-02 06:24] VITALS: BP 138/75
--- NOTE | 2019-12-02 06:43 | PDOC ---
Exam Note: Nick Note: This note is a late entry for 12/01/2019 covers elements not covered in my initial note. Subjective: The patient was reviewed on telehealth rounds in the evening of 12/01/2019 with Fox MCKEON. Discussed with nursing staff, reviewed the chart. Per Fox MCKEON, the patient slept 9 hours previous night. He is alert and oriented x4. He has had a good day, very cooperative, pleasant. Denies any suicidal or homicidal ideation. He has not been aggressive with staff. Paranoia is better. Review of Systems: He is hard of hearing. Impaired ambulation in wheelchair. No CV, , pulmonary, eye system symptoms on review. Mental Status Exam: Reasonably oriented. Speech is coherent. Abstraction is fair. Computation impaired. Language function impaired. Mood and affect is improved. Laboratory Data: Reviewed. 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 Impulse control disorder. Rest as above. Plan: No change from initial note. Continue psychotropics including Zoloft, Remeron, trazodone and we will adjust as clinically indicated. Assessment: Vital Signs/I&O: Vital Signs Date Time Temp Pulse Resp B/P (MAP) Pulse Ox O2 Delivery O2 Flow Rate FiO2 12/02/19 06:24 98.6 46 18 138/75 (96) 94 12/01/19 08:12 Room Air I & O 12/01/19 12/01/19 12/02/19 15:00 23:00 07:00 Intake Total 660 ml 340 ml Balance 660 ml 340 ml Labs: Laboratory Tests Test 12/01/19 09:20 White Blood Count 5.5 x10^3/uL (4.0-11.0) Red Blood Count 3.87 x10^6/uL (4.30-5.70) L Hemoglobin 12.7 g/dL (13.0-17.5) L Hematocrit 38.2 % (39.0-53.0) L Mean Corpuscular Volume 99 fL (79-100) Mean Corpuscular Hemoglobin 33 pg (25-35) Mean Corpuscular Hemoglobin Concent 33 g/dL (31-37) Red Cell Distribution Width 13.2 % (11.5-14.5) Platelet Count 126 x10^3/uL (140-400) L Neutrophils (%) (Auto) 52 % (31-73) Lymphocytes (%) (Auto) 32 % (24-48) Monocytes (%) (Auto) 9 % (0-9) Eosinophils (%) (Auto) 5 % (0-3) H Basophils (%) (Auto) 1 % (0-3) Neutrophils # (Auto) 2.9 x10^3uL (1.8-7.7) Lymphocytes # (Auto) 1.8 x10^3/uL (1.0-4.8) Monocytes # (Auto) 0.5 x10^3/uL (0.0-1.1) Eosinophils # (Auto) 0.3 x10^3/uL (0.0-0.7) Basophils # (Auto) 0.1 x10^3/uL (0.0-0.2) Sodium Level 138 mmol/L (136-145) Potassium Level 4.1 mmol/L (3.5-5.1) Chloride Level 105 mmol/L (98-107) Carbon Dioxide Level 24 mmol/L (21-32) Anion Gap 9 (6-14) Blood Urea Nitrogen 16 mg/dL (8-26) Creatinine 1.3 mg/dL (0.7-1.3) Estimated GFR (Cockcroft-Gault) 52.2 BUN/Creatinine Ratio 12 (6-20) Glucose Level 146 mg/dL (70-99) H Calcium Level 8.4 mg/dL (8.5-10.1) L Total Bilirubin 0.9 mg/dL (0.2-1.0) Aspartate Amino Transferase (AST) 17 U/L (15-37) Alanine Aminotransferase (ALT) 14 U/L (16-63) L Alkaline Phosphatase 64 U/L (46-116) Total Protein 6.7 g/dL (6.4-8.2) Albumin 2.9 g/dL (3.4-5.0) L Albumin/Globulin Ratio 0.8 (1.0-1.7) L Current Medications: Meds: Current Medications Medications (Trade) Dose Ordered Sig/Jovita Route PRN Reason Start Time Stop Time Status Last Admin Dose Admin Clotrimazole (Lotrimin) 1 lonny BID TP 12/01/19 09:00 12/01/19 20:50 Multivitamins/ Calcium (Thera-M Plus) 1 tab DAILY PO 12/01/19 09:00 12/01/19 08:45 Sertraline HCl (Zoloft) 50 mg DAILY PO 12/01/19 09:00 12/01/19 08:45 Tamsulosin HCl (Flomax) 0.4 mg DAILY PO 12/01/19 09:00 12/01/19 08:45 Vitamin A/Vitamin D (Vitamin A & D Ointment) 1 lonny BID TP 12/01/19 09:00 12/01/19 20:50 I have reviewed the current psychotropics carefully including drug interactions. Risk benefit ratio favors no change other than as noted in my dictated progress note. Diagnosis: Problems: (1) Impulse control disorder, unspecified (2) Anxiety disorder, unspecified (3) Major depressive disorder with psychotic features RACHEL SHAH MD Dec 02, 2019 06:43
--- NOTE | 2019-12-02 08:12 | NUR ---
Wound Care Patient seen on Monday by C on swing bed unit. Will follow up again by 12/06/2019. Wound Type/Assessment: Rash to buttocks, Pt has maceration and IAD to bilateral buttocks. Red and blanchable. Treatment Recommendations/Plan: Applied A&D ointment, reapply BID and PRN Education provided: PU prevention, POC Offloading surface/device: TQ2H Recommended Referrals/Tests: none Discharge Recommendations for dressings: continue as above noted
[2019-12-02] MEDS: MULTIVITAMIN with MINERAL TABLET. PO SCH (08:53)
[2019-12-02] MEDS: TAMSULOSIN 0.4 MG CAP.ER.24H. PO SCH (08:53)
[2019-12-02] MEDS: SERTRALINE 50 MG TABLET. PO SCH (08:54)
[2019-12-02] MEDS: CLOTRIMAZOLE 1% TOPICAL CREAM 30GM TUBE. TP SCH ×2 (08:54→20:05)
[2019-12-02] MEDS: VITS A & D/LANOLIN TOPICAL OINTMENT 42GM TUBE. TP SCH ×2 (08:54→20:05)
[2019-12-02] MEDS: NYSTATIN TOPICAL POWDER 15GM BOTTLE. TP SCH ×2 (08:54→20:05)
--- NOTE | 2019-12-02 11:07 | NUR ---
Moe is a [place] fee for service with authorization number of [id number].
--- NOTE | 2019-12-02 12:15 | NUR ---
Dr. Chu here for rounds. New order to d/c pts klonopin.
--- NOTE | 2019-12-02 12:48 | NUR ---
Pt is calm, cooperative, compliant. No agitation, no aggression, no hallucinations, no delusions. Pt denies SI/HI. He is compliant with his medications and assessment.
[2019-12-02 15:46] VITALS: BP 128/67
[2019-12-02] MEDS: MIRTAZAPINE ODT 15 MG TAB.RAPDIS. PO SCH (20:06)
--- NOTE | 2019-12-02 21:58 | PDOC ---
Exam Note: Nick Note: Please also refer to the separate dictated note~for this date of service dictated separately.~Patient seen individually. Discussed the patient with Nursing staff reviewed the chart.~Reviewed interim history and current functioning. Reviewed vital signs,~Labs/ Radiology~and current medications noted below. Continue current treatment with the changes noted in the dictated addendum note Assessment: Vital Signs/I&O: Vital Signs Date Time Temp Pulse Resp B/P (MAP) Pulse Ox O2 Delivery O2 Flow Rate FiO2 12/02/19 15:46 97.2 98 18 128/67 (87) 93 12/01/19 08:12 Room Air I & O 12/01/19 12/01/19 12/02/19 15:00 23:00 07:00 Intake Total 660 ml 340 ml Balance 660 ml 340 ml Current Medications: I have reviewed the current psychotropics carefully including drug interactions. Risk benefit ratio favors no change other than as noted in my dictated progress note. Diagnosis: Problems: (1) Impulse control disorder, unspecified (2) Anxiety disorder, unspecified (3) Major depressive disorder with psychotic features RACHEL SHAH MD Dec 02, 2019 21:58
[2019-12-03 06:24] VITALS: BP 142/75
[2019-12-03] MEDS: VITS A & D/LANOLIN TOPICAL OINTMENT 42GM TUBE. TP SCH ×2 (09:46→20:07)
[2019-12-03] MEDS: CLOTRIMAZOLE 1% TOPICAL CREAM 30GM TUBE. TP SCH ×2 (09:46→20:08)
[2019-12-03] MEDS: TAMSULOSIN 0.4 MG CAP.ER.24H. PO SCH (09:46)
[2019-12-03] MEDS: MULTIVITAMIN with MINERAL TABLET. PO SCH (09:46)
[2019-12-03] MEDS: SERTRALINE 50 MG TABLET. PO SCH (09:46)
[2019-12-03] MEDS: NYSTATIN TOPICAL POWDER 15GM BOTTLE. TP SCH ×2 (09:46→20:08)
--- NOTE | 2019-12-03 13:15 | NUR ---
LUCIA contacted Neetu with the [facility] to give her an update on how pt is doing. Pt is pretty calm, cooperative and pleasant with staff interactions. Pt does tend to be somewhat withdrawn, but no major behaviors have been noted. LUCIA did inform Neetu that psychological testing for capacity and safety awareness has been ordered; that will be completed Monday at 1300; so potential for discharge could be either Monday or Monday. LUCIA went over medications and did note that pt is being seen by wound care. LUCIA was asked to update them either or Monday with an update.
--- NOTE | 2019-12-03 13:30 | NUR ---
ACTIVITY THERAPY ASSESSMENT Completed based on observation and interview. Pt. was in his room, sitting in his wheelchair with a blanket covering his head and upper body. He was quick to remove the blanket when SPEEDER FRAME TENDER announced her presence and he explained he was very cold. SPEEDER FRAME TENDER got a warmed blanket to wrap around his shoulders and Pt. was very appreciative. Pt. was engaged in the interview; however, needed redirection back on topic as he had a tendency to lose track of his thought and share stories. He was able to recall most facts about his past; however, seemed to struggle recalling current details. Pt. explained he was living in the basement of his parent's old house but then his sister moved him to a facility where he was being treated like a "second class citizen" before he came here. He likes it here- good food, good care- but he really wants to get his house back. He expressed more frustrations with his sister, saying she owes him over "$100,000.00" but said "it's not about the money, it's about the principle. 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 He was too interested in education and helping people so he never and had no children. Pt. 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 He used to play bridge (cards), likes Bingo and exercise classes. Overall, Pt. is preoccupied with his living/money concerns and seems content with minimal stimulation. He is slightly hard of hearing and may need louder, repeat directions. Initial goal aimed to increase engagement: Pt. will participate in at least three individual Activity Therapy sessions before discharge. Addendum: 12/09/19 at 1525 by GREGORY MILLAN ACT Goal changed 12/08: Pt. will participate in at least three individual or Activity Therapy groups per week
--- NOTE | 2019-12-03 14:45 | NUR ---
Patient unable to void to provide sample for UA and states he feels no urge to urinate at this time. Patient transferred from wheelchair to bed with x1 assist for straight catheter. Patient cooperative with straight catheter procedure stating that he has had it done before and that the last time the nurses removed over a half gallon of urine. Bladderscanner indicated over 400mL of urine; patient catheterized and well over 1000mL hazy, malodorous, dark yellow urine drained. UA sample sent to lab. Patient placed on right side and made comfortable in bed. Will continue to monitor.
[2019-12-03 15:23] LABS: BILIRUBIN,URINE NEG (NEG); CLARITY,URINE HAZY; COLOR,URINE YELLOW; GLUCOSE,URINE NEG (NEG)
[2019-12-03 15:24] LABS: BACTERIA,URINE MANY /HPF (0-FEW); NITRITE,URINE POS (NEG); RBC,URINE OCC /HPF (0-2); SQUAMOUS EPITHELIAL CELL,UR OCC /LPF; UROBILINOGEN,URINE 0.2 mg/dL (0.2 mg/dL); WBC,URINE RARE /HPF (0-4)
[2019-12-03 16:03] VITALS: BP 128/54
[2019-12-03] MEDS: MIRTAZAPINE ODT 15 MG TAB.RAPDIS. PO SCH (20:07)
--- NOTE | 2019-12-03 21:42 | PDOC ---
Exam Note: Nick Note: Please also refer to the separate dictated note~for this date of service dictated separately.~Patient seen individually. Discussed the patient with Nursing staff reviewed the chart.~Reviewed interim history and current functioning. Reviewed vital signs,~Labs/ Radiology~and current medications noted below. Continue current treatment with the changes noted in the dictated addendum note Assessment: Vital Signs/I&O: Vital Signs Date Time Temp Pulse Resp B/P (MAP) Pulse Ox O2 Delivery O2 Flow Rate FiO2 12/03/19 16:03 97.7 71 18 128/54 (78) 94 12/01/19 08:12 Room Air I & O 12/02/19 12/02/19 12/03/19 15:00 23:00 07:00 Intake Total 720 ml 340 ml Balance 720 ml 340 ml Labs: Laboratory Tests Test 12/03/19 14:15 Urine Collection Type Unknown Urine Color Yellow Urine Clarity Hazy Urine pH 6.0 Urine Specific [place] 1.015 Urine Protein Neg (NEG-TRACE) Urine Glucose (UA) Neg mg/dL (NEG) Urine Ketones (Stick) Neg mg/dL (NEG) Urine Blood Trace (NEG) Urine Nitrite Pos (NEG) Urine Bilirubin Neg (NEG) Urine Urobilinogen Dipstick 0.2 mg/dL (0.2 mg/dL) Urine Leukocyte Esterase Neg (NEG) Urine RBC Occ /HPF (0-2) Urine WBC Rare /HPF (0-4) Urine Squamous Epithelial Cells Occ /LPF Urine Bacteria Many /HPF (0-FEW) Current Medications: I have reviewed the current psychotropics carefully including drug interactions. Risk benefit ratio favors no change other than as noted in my dictated progress note. Diagnosis: Problems: (1) Impulse control disorder, unspecified (2) Anxiety disorder, unspecified (3) Major depressive disorder with psychotic features RACHEL SHAH MD Dec 03, 2019 21:42
--- NOTE | 2019-12-03 21:53 | NUR ---
Pt has been in bed this evening he was cooperative with meds and well oriented. He talked about his "bad sister" having sold his house and car and said she owes him 200 thousand dollars and that she abused her [employer]. He did not make any HI statements about anyone.
[2019-12-04 06:01] VITALS: BP 149/84
--- NOTE | 2019-12-04 06:58 | PDOC ---
Exam Note: Nick Note: This note is a late entry for 12/02/2019 covers elements not covered in my initial note. Subjective: The patient was reviewed on telehealth rounds in the morning for treatment team meeting of 12/02/2019 with Judi, social service staff and Layla MCKEON. Discussed with nursing staff, reviewed the chart. The patient was also reviewed on telehealth rounds in the evening. The patient slept 8-3/4 hours previous night. Appetite is 75%. He did well the previous night and during the day, quite appreciative of the staff. Urine was contaminated and we may have to repeat UA to rule out UTI. Review of Systems: Ambulation impaired. No CV, , pulmonary, eye system symptoms on review. Mental Status Exam: Reasonably oriented. Speech is coherent, somewhat pressured at times, typical for him. Abstraction is fair. Computation impaired. Language function intact. Mood and affect is less labile, less depressed. Laboratory Data: Reviewed. 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 Impulse control disorder. Rest as above. Plan: We may need to repeat UA for C&S. Continue rest of the psychotropics per initial note. Assessment: Vital Signs/I&O: Vital Signs Date Time Temp Pulse Resp B/P (MAP) Pulse Ox O2 Delivery O2 Flow Rate FiO2 12/04/19 06:01 98.4 76 18 149/84 (105) 95 12/01/19 08:12 Room Air I & O 12/03/19 12/03/19 12/04/19 15:00 23:00 07:00 Intake Total 796 ml 436 ml Balance 796 ml 436 ml Labs: Laboratory Tests Test 12/03/19 14:15 Urine Collection Type Unknown Urine Color Yellow Urine Clarity Hazy Urine pH 6.0 Urine Specific [place] 1.015 Urine Protein Neg (NEG-TRACE) Urine Glucose (UA) Neg mg/dL (NEG) Urine Ketones (Stick) Neg mg/dL (NEG) Urine Blood Trace (NEG) Urine Nitrite Pos (NEG) Urine Bilirubin Neg (NEG) Urine Urobilinogen Dipstick 0.2 mg/dL (0.2 mg/dL) Urine Leukocyte Esterase Neg (NEG) Urine RBC Occ /HPF (0-2) Urine WBC Rare /HPF (0-4) Urine Squamous Epithelial Cells Occ /LPF Urine Bacteria Many /HPF (0-FEW) Current Medications: I have reviewed the current psychotropics carefully including drug interactions. Risk benefit ratio favors no change other than as noted in my dictated progress note. Diagnosis: Problems: (1) Impulse control disorder, unspecified (2) Anxiety disorder, unspecified (3) Major depressive disorder with psychotic features RACHEL SHAH MD Dec 04, 2019 06:58
--- NOTE | 2019-12-04 07:06 | PDOC ---
Exam Note: Nick Note: This note is a late entry for 12/03/2019 covers elements not covered in my initial note. Subjective: The patient was reviewed on telehealth rounds in the evening of 12/03/2019 with Mike MCKEON. Discussed with nursing staff, reviewed the chart. UA has reflex to culture. At times he appears occasionally helpless. At one point earlier today he took 2 people to get into the toilet, later in the day he was doing it himself. Review of Systems: Ambulation impaired. No CV, , pulmonary, eye system symptoms on review. Mental Status Exam: The patient is quite hyperverbal, very appreciative of the staff. Speech is coherent. Abstraction is fair. Computation impaired. Language function impaired. Mood and affect is improved. Laboratory Data: Reviewed. 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 Impulse control disorder. Rest as above. Plan: No change from initial note. Assessment: Vital Signs/I&O: Vital Signs Date Time Temp Pulse Resp B/P (MAP) Pulse Ox O2 Delivery O2 Flow Rate FiO2 12/04/19 06:01 98.4 76 18 149/84 (105) 95 12/01/19 08:12 Room Air I & O 12/03/19 12/03/19 12/04/19 15:00 23:00 07:00 Intake Total 796 ml 436 ml Balance 796 ml 436 ml Labs: Laboratory Tests Test 12/03/19 14:15 Urine Collection Type Unknown Urine Color Yellow Urine Clarity Hazy Urine pH 6.0 Urine Specific [place] 1.015 Urine Protein Neg (NEG-TRACE) Urine Glucose (UA) Neg mg/dL (NEG) Urine Ketones (Stick) Neg mg/dL (NEG) Urine Blood Trace (NEG) Urine Nitrite Pos (NEG) Urine Bilirubin Neg (NEG) Urine Urobilinogen Dipstick 0.2 mg/dL (0.2 mg/dL) Urine Leukocyte Esterase Neg (NEG) Urine RBC Occ /HPF (0-2) Urine WBC Rare /HPF (0-4) Urine Squamous Epithelial Cells Occ /LPF Urine Bacteria Many /HPF (0-FEW) Current Medications: I have reviewed the current psychotropics carefully including drug interactions. Risk benefit ratio favors no change other than as noted in my dictated progress note. Diagnosis: Problems: (1) Impulse control disorder, unspecified (2) Anxiety disorder, unspecified (3) Major depressive disorder with psychotic features RACHEL SHAH MD Dec 04, 2019 07:06
[2019-12-04] MEDS: SERTRALINE 50 MG TABLET. PO SCH (08:09)
[2019-12-04] MEDS: MULTIVITAMIN with MINERAL TABLET. PO SCH (08:09)
[2019-12-04] MEDS: TAMSULOSIN 0.4 MG CAP.ER.24H. PO SCH (08:09)
[2019-12-04] MEDS: VITS A & D/LANOLIN TOPICAL OINTMENT 42GM TUBE. TP SCH ×2 (08:10→19:52)
[2019-12-04] MEDS: CLOTRIMAZOLE 1% TOPICAL CREAM 30GM TUBE. TP SCH (08:10)
[2019-12-04] MEDS: NYSTATIN TOPICAL POWDER 15GM BOTTLE. TP SCH ×2 (08:10→19:52)
--- NOTE | 2019-12-04 08:48 | NUR ---
Patient in bed, reports Left leg pain "just all over". PRN tylenol provided with patients morning medications. Will continue to monitor. Addendum: 12/04/19 at 1107 by RICARDO SIMONS RN PRN tylenol appears to have relieved patients pain. Patient now seated in wheelchair asleep. no S/S pain noted at this time.
--- NOTE | 2019-12-04 11:07 | NUR ---
Patient was incontinent of urine this morning, his bed was very wet. When nurse brought patient his morning medications he stated he was "unable" to sit up to take them, asking nurse to 'sit him up". Head of bed was brought up, patient still reported he is unable to sit up. Patient assisted to sitting position and sat on the bed to eat his meal. Patient was compliant with medications, he takes them whole with water. Patient evasive with time/date orientation questions but eventually said he thought it was December,. Patient states that we are at [facility] in [place]. When asked, patient denies SI and denies wanting to hurt his sister. Patient worked with PT and has been seated in a wheelchair with a thick blanket over his head in his room. He is asleep. Patient has a urine culture pending.
[2019-12-04 15:38] VITALS: BP 96/59
[2019-12-04] MEDS: MIRTAZAPINE ODT 15 MG TAB.RAPDIS. PO SCH (19:52)
--- NOTE | 2019-12-04 21:59 | PDOC ---
Exam Note: Nick Note: Please also refer to the separate dictated note~for this date of service dictated separately.~Patient seen individually. Discussed the patient with Nursing staff reviewed the chart.~Reviewed interim history and current functioning. Reviewed vital signs,~Labs/ Radiology~and current medications noted below. Continue current treatment with the changes noted in the dictated addendum note Assessment: Vital Signs/I&O: Vital Signs Date Time Temp Pulse Resp B/P (MAP) Pulse Ox O2 Delivery O2 Flow Rate FiO2 12/04/19 20:54 98.0 94 12/04/19 15:38 57 19 96/59 (71) 12/01/19 08:12 Room Air I & O 12/03/19 12/03/19 12/04/19 15:00 23:00 07:00 Intake Total 796 ml 436 ml Balance 796 ml 436 ml Current Medications: I have reviewed the current psychotropics carefully including drug interactions. Risk benefit ratio favors no change other than as noted in my dictated progress note. Diagnosis: Problems: (1) Impulse control disorder, unspecified (2) Anxiety disorder, unspecified (3) Major depressive disorder with psychotic features RACHEL SHAH MD Dec 04, 2019 21:59
[2019-12-05 06:28] VITALS: BP 133/70
--- NOTE | 2019-12-05 07:36 | PDOC ---
Exam Note: Nick Note: This note is a late entry for 12/04/2019 covers elements not covered in my initial note. Subjective: The patient was reviewed on telehealth rounds in the evening of 12/04/2019 with Rain MCKEON. Discussed with nursing staff, reviewed the chart. The patient slept 8-1/2 hours previous night. He remains cognitively intact. He still appears depressed, somewhat helpless, does not do much for himself unless pushed to do so. During telehealth rounds, he was fixated that he wished the physical therapy staff would get him more activities to do. He denies suicidal or homicidal ideation. Review of Systems: Ambulation impaired. No CV, , pulmonary, eye system symptoms on review. Mental Status Exam: The patient is reasonably oriented. Speech is coherent, somewhat pressured. Abstraction is fair. Computation impaired. Language function intact. Mood and affect is somewhat labile. Laboratory Data: Reviewed. 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 Impulse control disorder. Plan: No change from initial note. Assessment: Vital Signs/I&O: Vital Signs Date Time Temp Pulse Resp B/P (MAP) Pulse Ox O2 Delivery O2 Flow Rate FiO2 12/05/19 06:28 98.4 63 16 133/70 (91) 94 Room Air I & O0 12/04/19 12/04/19 12/05/19 15:00 23:00 07:00 Intake Total 440 ml 200 ml Balance 440 ml 200 ml Current Medications: I have reviewed the current psychotropics carefully including drug interactions. Risk benefit ratio favors no change other than as noted in my dictated progress note. Diagnosis: Problems: (1) Impulse control disorder, unspecified (2) Anxiety disorder, unspecified (3) Major depressive disorder with psychotic features RACHEL SHAH MD Dec 05, 2019 07:36
[2019-12-05] MEDS: MULTIVITAMIN with MINERAL TABLET. PO SCH (08:44)
[2019-12-05] MEDS: TAMSULOSIN 0.4 MG CAP.ER.24H. PO SCH (08:44)
[2019-12-05] MEDS: SERTRALINE 50 MG TABLET. PO SCH (08:44)
[2019-12-05] MEDS: NYSTATIN TOPICAL POWDER 15GM BOTTLE. TP SCH ×2 (08:45→19:45)
[2019-12-05] MEDS: VITS A & D/LANOLIN TOPICAL OINTMENT 42GM TUBE. TP SCH ×2 (08:45→19:45)
[2019-12-05 15:18] VITALS: BP 112/66
--- NOTE | 2019-12-05 16:20 | NUR ---
Wound/Ostomy Care Wound Type/Assessment: Pt seen for IAD to bilateral buttocks. IAD is improving from last assessment on Swing unit.Still has small open areas to right buttock. Area cleansed and A&D ointment applied. Treatment Recommendations/Plan: A&D ointment BID and PRN, continue to offload with wheelchair cushion and side laying while in bed Education provided: PU prevention, will need reinforcement due to mental status Offloading surface/device: Pt has roho wheelchair cushion, it needs additional air added. Discussed with Mike MCKEON who will pass on message to PT to see if they can adjust it. Recommended Referrals/Tests: none Discharge Recommendations for dressings: Continue with A&D ointment and offloading
--- NOTE | 2019-12-05 17:44 | NUR ---
Patient calm, relaxed, and usually cooperative throughout this shift. He participated in group activities, and was compliant with all medications and assessments. Patient required less assistance when transferring today and was cooperative with therapy. Will continue to monitor and report to oncoming shift.
[2019-12-05] MEDS: MIRTAZAPINE ODT 15 MG TAB.RAPDIS. PO SCH (19:45)
--- NOTE | 2019-12-05 21:41 | NUR ---
Pt was cooperative with cares in PM. Gave pt icecream for snack and he was able to eat on his own. When providing corinna care pt. was able to lift hips off mattress to allow for removal of pants. Pt. was incontinent and unaware of being wet.
--- NOTE | 2019-12-05 21:57 | PDOC ---
Exam Note: Nick Note: Please also refer to the separate dictated note~for this date of service dictated separately.~Patient seen individually. Discussed the patient with Nursing staff reviewed the chart.~Reviewed interim history and current functioning. Reviewed vital signs,~Labs/ Radiology~and current medications noted below. Continue current treatment with the changes noted in the dictated addendum note Assessment: Vital Signs/I&O: Vital Signs Date Time Temp Pulse Resp B/P (MAP) Pulse Ox O2 Delivery O2 Flow Rate FiO2 12/05/19 15:18 98.3 87 18 112/66 (81) 97 Room Air I & O 12/04/19 12/04/19 12/05/19 14:59 22:59 06:59 Intake Total 440 ml 200 ml Balance 440 ml 200 ml Current Medications: I have reviewed the current psychotropics carefully including drug interactions. Risk benefit ratio favors no change other than as noted in my dictated progress note. Diagnosis: Problems: (1) Impulse control disorder, unspecified (2) Anxiety disorder, unspecified (3) Major depressive disorder with psychotic features RACHEL SHAH MD Dec 05, 2019 21:57
--- NOTE | 2019-12-06 01:44 | NUR ---
Pt took med whole without difficulty and seems more alert and in better spirits tonight. He said he is tired tonight and has not slept during the day. ASince going to bed he has been sleeping and has had no behaviors tonight.
[2019-12-06 05:53] VITALS: BP 123/69
[2019-12-06] MEDS: MULTIVITAMIN with MINERAL TABLET. PO SCH (08:21)
[2019-12-06] MEDS: TAMSULOSIN 0.4 MG CAP.ER.24H. PO SCH (08:22)
[2019-12-06] MEDS: SERTRALINE 50 MG TABLET. PO SCH (08:22)
[2019-12-06] MEDS: VITS A & D/LANOLIN TOPICAL OINTMENT 42GM TUBE. TP SCH ×2 (09:00→20:53)
[2019-12-06] MEDS: NYSTATIN TOPICAL POWDER 15GM BOTTLE. TP SCH ×2 (09:00→20:53)
--- NOTE | 2019-12-06 15:17 | NUR ---
Patient has been sitting up in his chair most to the day. He has been calm and pleasant and compliant with medications taken whole. Denies SI when asked.
[2019-12-06 15:26] VITALS: BP 110/66
--- NOTE | 2019-12-06 18:25 | NUR ---
Patient swabbed for his weekly COVID 19 test. He was cooperative and calm. He thanked nurse after test was completed. Tube taken to lab with test swab enclosed.
[2019-12-06] MEDS: MIRTAZAPINE ODT 15 MG TAB.RAPDIS. PO SCH (20:53)
--- NOTE | 2019-12-06 21:57 | PDOC ---
Exam Note: Nick Note: Please also refer to the separate dictated note~for this date of service dictated separately.~Patient seen individually. Discussed the patient with Nursing staff reviewed the chart.~Reviewed interim history and current functioning. Reviewed vital signs,~Labs/ Radiology~and current medications noted below. Continue current treatment with the changes noted in the dictated addendum note Assessment: Vital Signs/I&O: Vital Signs Date Time Temp Pulse Resp B/P (MAP) Pulse Ox O2 Delivery O2 Flow Rate FiO2 12/06/19 15:26 99.0 75 18 110/66 (81) 94 12/05/19 15:18 Room Air I & O 12/05/19 12/05/19 12/06/19 15:00 23:00 07:00 Intake Total 320 ml 360 ml Balance 320 ml 360 ml Current Medications: I have reviewed the current psychotropics carefully including drug interactions. Risk benefit ratio favors no change other than as noted in my dictated progress note. Diagnosis: Problems: (1) Impulse control disorder, unspecified (2) Anxiety disorder, unspecified (3) Major depressive disorder with psychotic features RACHEL SHAH MD Dec 06, 2019 21:57
--- NOTE | 2019-12-07 01:17 | NUR ---
Pt was pleasant and cooperative with cares during PM shift. Pt was able to sit up and eat icecream of own ability. During corinna care pt. was able to lift hips to allow for removal of pants and brief. Pt was able to turn self and hold position during changing of sheets. Pt made comment during dr. angela video call referencing a procedure where they (drained his bladder?) patient comment was unclear, pt stated " it was great because I didn't have to worry about going to the bathroom". Asked pt. later about the comment and pt did not remember saying it.
[2019-12-07 05:00] VITALS: BP 138/74
--- NOTE | 2019-12-07 06:47 | PDOC ---
Exam Note: Nick Note: This note is a late entry for 12/05/2019 covers elements not covered in my initial note. Subjective: The patient was reviewed on telehealth rounds in the evening of 12/05/2019 with Mike MCKEON. Discussed with nursing staff, reviewed the chart. The patient slept 7-1/[address] Chaparro did do his neuropsychological testing. Report is awaited. Overall the patient is doing better, remains somewhat anxious and hyperverbal. Cognitively, reasonably intact. Review of Systems: No CV, , pulmonary, eye system symptoms on review. Impaired ambulation. Mental Status Exam: The patient is reasonably oriented. Speech is coherent. Abstraction is fair. Computation impaired. Language function intact. Mood and affect is somewhat anxious, labile. No suicidal ideation. Laboratory Data: Reviewed. 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 Impulse control disorder. Plan: Continue current psychotropics. Adjust further as clinically indicated. Assessment: Vital Signs/I&O: Vital Signs Date Time Temp Pulse Resp B/P (MAP) Pulse Ox O2 Delivery O2 Flow Rate FiO2 12/07/19 05:00 98.1 72 16 138/74 (95) 96 Room Air I & O 12/06/19 12/06/19 12/07/19 15:00 23:00 07:00 Intake Total 540 ml 360 ml 120 ml Balance 540 ml 360 ml 120 ml Current Medications: I have reviewed the current psychotropics carefully including drug interactions. Risk benefit ratio favors no change other than as noted in my dictated progress note. Diagnosis: Problems: (1) Impulse control disorder, unspecified (2) Anxiety disorder, unspecified (3) Major depressive disorder with psychotic features RACHEL SHAH MD Dec 07, 2019 06:47
--- NOTE | 2019-12-07 07:00 | PDOC ---
Exam Note: Nick Note: This note is a late entry for 12/06/2019 covers elements not covered in my initial note. Subjective: The patient was reviewed on telehealth rounds in the evening of 12/06/2019 with Rain MCKEON. Discussed with nursing staff, reviewed the chart. The patient slept 8-3/4 hours previous night. He was very hyperverbal during the telehealth rounds, partly due to his anxiety but not aggressive, very appreciative of the care he has got here. Review of Systems: Ambulation impaired in wheelchair. No CV, , pulmonary, eye system symptoms on review. Mental Status Exam: The patient is reasonably oriented. Speech is coheret. Abstraction is fair. Computation impaired. Language function intact. Mood and affect is somewhat labile. No suicidal ideation. Laboratory Data: Reviewed. 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 Impulse control disorder. Plan: No change from initial note. Assessment: Vital Signs/I&O: Vital Signs Date Time Temp Pulse Resp B/P (MAP) Pulse Ox O2 Delivery O2 Flow Rate FiO2 12/07/19 05:00 98.1 72 16 138/74 (95) 96 Room Air I & O 0 12/06/19 12/06/19 12/07/19 14:59 22:59 06:59 Intake Total 540 ml 360 ml 120 ml Balance 540 ml 360 ml 120 ml Current Medications: I have reviewed the current psychotropics carefully including drug interactions. Risk benefit ratio favors no change other than as noted in my dictated progress note. Diagnosis: Problems: (1) Impulse control disorder, unspecified (2) Anxiety disorder, unspecified (3) Major depressive disorder with psychotic features RACHEL SHAH MD Dec 07, 2019 07:00
[2019-12-07] MEDS: SERTRALINE 50 MG TABLET. PO SCH (08:28)
[2019-12-07] MEDS: VITS A & D/LANOLIN TOPICAL OINTMENT 42GM TUBE. TP SCH ×2 (08:28→20:07)
[2019-12-07] MEDS: MULTIVITAMIN with MINERAL TABLET. PO SCH (08:28)
[2019-12-07] MEDS: NYSTATIN TOPICAL POWDER 15GM BOTTLE. TP SCH ×2 (08:28→20:07)
[2019-12-07] MEDS: TAMSULOSIN 0.4 MG CAP.ER.24H. PO SCH (08:28)
--- NOTE | 2019-12-07 10:20 | NUR ---
Pt is calm, cooperative, compliant. No agitation, no aggression, no hallucinations, no delusions. Pt denies SI/HI. He is compliant with his medications and assessment.
[2019-12-07 11:05] LABS: BASO # 0.1 x10^3/uL (0.0-0.2); BASO % 2 % (0-3); EOS # 0.2 x10^3/uL (0.0-0.7); EOS % 3 % (0-3); HEMATOCRIT 41.8 % (39.0-53.0); HEMOGLOBIN 13.8 g/dL (13.0-17.5); LYMPH % 27 % (24-48); MEAN CORPUSCULAR HEMOGLOBIN 33 pg (25-35); MEAN CORPUSCULAR HGB CONC 33 g/dL (31-37); MEAN CORPUSCULAR VOLUME 99 fL (79-100); MONO # 0.6 x10^3/uL (0.0-1.1); MONO % 8 % (0-9); NEUT # 4.5 x10^3uL (1.8-7.7); NEUT % 61 % (31-73); PLATELET COUNT 156 x10^3/uL (140-400); RED BLOOD COUNT 4.23 x10^6/uL (4.30-5.70); RED CELL DISTRIBUTION WIDTH 13.4 % (11.5-14.5); WHITE BLOOD COUNT 7.4 x10^3/uL (4.0-11.0)
[2019-12-07 11:15] LABS: ALBUMIN 3.4 g/dL (3.4-5.0); ALBUMIN/GLOBULIN RATIO 0.8 (1.0-1.7); CALCIUM 8.7 mg/dL (8.5-10.1); CREATININE 1.4 mg/dL (0.7-1.3); GFR 47.9; TOTAL BILIRUBIN 0.9 mg/dL (0.2-1.0); TOTAL PROTEIN 7.6 g/dL (6.4-8.2)
[2019-12-07 15:00] VITALS: BP 132/69
[2019-12-07] MEDS: MIRTAZAPINE ODT 15 MG TAB.RAPDIS. PO SCH (20:06)
[2019-12-07] MEDS: QUEtiapine 25 MG TABLET. PO SCH (20:06)
--- NOTE | 2019-12-07 21:03 | NUR ---
Pt. pleasant with interaction, declined PM snack. Initially did not want to be changed stated "she just cleaned me up 15 minutes ago". I told pt. that it was eight o'clock (1999) and that it had been a few hours and I needed to check, additionally I need to apply more powder and ointment to your bottom. Pt. stated " Just do it in the morning". I insisted and pt. allowed me to check brief (dry) and apply more powder and ointment as needed. Pt skin looked much improved compared to previous days, no open areas noticed and redness significantly decreased.
--- NOTE | 2019-12-07 22:05 | PDOC ---
Exam Note: Nick Note: Please also refer to the separate dictated note~for this date of service dictated separately.~Patient seen individually. Discussed the patient with Nursing staff reviewed the chart.~Reviewed interim history and current functioning. Reviewed vital signs,~Labs/ Radiology~and current medications noted below. Continue current treatment with the changes noted in the dictated addendum note Assessment: Vital Signs/I&O: Vital Signs Date Time Temp Pulse Resp B/P (MAP) Pulse Ox O2 Delivery O2 Flow Rate FiO2 12/07/19 15:00 98.4 77 20 132/69 (90) 96 Room Air I & O 12/06/19 12/06/19 12/07/19 15:00 23:00 07:00 Intake Total 540 ml 360 ml 120 ml Balance 540 ml 360 ml 120 ml Labs: Laboratory Tests Test 12/07/19 10:11 White Blood Count 7.4 x10^3/uL (4.0-11.0) Red Blood Count 4.23 x10^6/uL (4.30-5.70) L Hemoglobin 13.8 g/dL (13.0-17.5) Hematocrit 41.8 % (39.0-53.0) Mean Corpuscular Volume 99 fL (79-100) Mean Corpuscular Hemoglobin 33 pg (25-35) Mean Corpuscular Hemoglobin Concent 33 g/dL (31-37) Red Cell Distribution Width 13.4 % (11.5-14.5) Platelet Count 156 x10^3/uL (140-400) Neutrophils (%) (Auto) 61 % (31-73) Lymphocytes (%) (Auto) 27 % (24-48) Monocytes (%) (Auto) 8 % (0-9) Eosinophils (%) (Auto) 3 % (0-3) Basophils (%) (Auto) 2 % (0-3) Neutrophils # (Auto) 4.5 x10^3uL (1.8-7.7) Lymphocytes # (Auto) 2.0 x10^3/uL (1.0-4.8) Monocytes # (Auto) 0.6 x10^3/uL (0.0-1.1) Eosinophils # (Auto) 0.2 x10^3/uL (0.0-0.7) Basophils # (Auto) 0.1 x10^3/uL (0.0-0.2) Sodium Level 140 mmol/L (136-145) Potassium Level 4.0 mmol/L (3.5-5.1) Chloride Level 105 mmol/L (98-107) Carbon Dioxide Level 23 mmol/L (21-32) Anion Gap 12 (6-14) Blood Urea Nitrogen 23 mg/dL (8-26) Creatinine 1.4 mg/dL (0.7-1.3) H Estimated GFR (Cockcroft-Gault) 47.9 BUN/Creatinine Ratio 16 (6-20) Glucose Level 169 mg/dL (70-99) H Calcium Level 8.7 mg/dL (8.5-10.1) Total Bilirubin 0.9 mg/dL (0.2-1.0) Aspartate Amino Transferase (AST) 22 U/L (15-37) Alanine Aminotransferase (ALT) 24 U/L (16-63) Alkaline Phosphatase 70 U/L (46-116) Total Protein 7.6 g/dL (6.4-8.2) Albumin 3.4 g/dL (3.4-5.0) Albumin/Globulin Ratio 0.8 (1.0-1.7) L Current Medications: Meds: Current Medications Medications (Trade) Dose Ordered Sig/Jovita Route PRN Reason Start Time Stop Time Status Last Admin Dose Admin Quetiapine Fumarate (SEROquel) 25 mg QHS PO 12/07/19 21:00 12/07/19 20:06 I have reviewed the current psychotropics carefully including drug interactions. Risk benefit ratio favors no change other than as noted in my dictated progress note. Diagnosis: Problems: (1) Impulse control disorder, unspecified (2) Anxiety disorder, unspecified (3) Major depressive disorder with psychotic features RACHEL SHAH MD Dec 07, 2019 22:05
--- NOTE | 2019-12-07 23:17 | PDOC ---
Exam Note: Nick Note: This note for 12/07/2019 covers elements not covered in my initial note. Subjective: The patient was reviewed on telehealth rounds in the evening of 12/07/2019 with Layla MCKEON. Discussed with nursing staff, reviewed the chart. Previous night he was somewhat bizarre, appeared paranoid, hyperverbal. Review of Systems: Ambulation impaired in wheelchair. No CV, , pulmonary, eye system symptoms on review. Mental Status Exam: The patient is reasonably oriented. Speech is coherent, has some latency. Abstraction is fair. Computation impaired. Language funct ion intact. Mood and affect is still somewhat anxious, depressed. No suicidal ideation. Laboratory Data: Reviewed. 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 Impulse control disorder. Plan: Continue current psychotropics. Add Seroquel 25 mg a.m. as a mood stabilizer and to augment the Zoloft. Assessment: Vital Signs/I&O: Vital Signs Date Time Temp Pulse Resp B/P (MAP) Pulse Ox O2 Delivery O2 Flow Rate FiO2 12/07/19 15:00 98.4 77 20 132/69 (90) 96 Room Air I & O 12/06/19 12/06/19 12/07/19 15:00 23:00 07:00 Intake Total 540 ml 360 ml 120 ml Balance 540 ml 360 ml 120 ml Labs: Laboratory Tests Test 12/07/19 10:11 White Blood Count 7.4 x10^3/uL (4.0-11.0) Red Blood Count 4.23 x10^6/uL (4.30-5.70) L Hemoglobin 13.8 g/dL (13.0-17.5) Hematocrit 41.8 % (39.0-53.0) Mean Corpuscular Volume 99 fL (79-100) Mean Corpuscular Hemoglobin 33 pg (25-35) Mean Corpuscular Hemoglobin Concent 33 g/dL (31-37) Red Cell Distribution Width 13.4 % (11.5-14.5) Platelet Count 156 x10^3/uL (140-400) Neutrophils (%) (Auto) 61 % (31-73) Lymphocytes (%) (Auto) 27 % (24-48) Monocytes (%) (Auto) 8 % (0-9) Eosinophils (%) (Auto) 3 % (0-3) Basophils (%) (Auto) 2 % (0-3) Neutrophils # (Auto) 4.5 x10^3uL (1.8-7.7) Lymphocytes # (Auto) 2.0 x10^3/uL (1.0-4.8) Monocytes # (Auto) 0.6 x10^3/uL (0.0-1.1) Eosinophils # (Auto) 0.2 x10^3/uL (0.0-0.7) Basophils # (Auto) 0.1 x10^3/uL (0.0-0.2) Sodium Level 140 mmol/L (136-145) Potassium Level 4.0 mmol/L (3.5-5.1) Chloride Level 105 mmol/L (98-107) Carbon Dioxide Level 23 mmol/L (21-32) Anion Gap 12 (6-14) Blood Urea Nitrogen 23 mg/dL (8-26) Creatinine 1.4 mg/dL (0.7-1.3) H Estimated GFR (Cockcroft-Gault) 47.9 BUN/Creatinine Ratio 16 (6-20) Glucose Level 169 mg/dL (70-99) H Calcium Level 8.7 mg/dL (8.5-10.1) Total Bilirubin 0.9 mg/dL (0.2-1.0) Aspartate Amino Transferase (AST) 22 U/L (15-37) Alanine Aminotransferase (ALT) 24 U/L (16-63) Alkaline Phosphatase 70 U/L (46-116) Total Protein 7.6 g/dL (6.4-8.2) Albumin 3.4 g/dL (3.4-5.0) Albumin/Globulin Ratio 0.8 (1.0-1.7) L Current Medications: Meds: Current Medications Medications (Trade) Dose Ordered Sig/Jovita Route PRN Reason Start Time Stop Time Status Last Admin Dose Admin Quetiapine Fumarate (SEROquel) 25 mg QHS PO 12/07/19 21:00 12/07/19 20:06 I have reviewed the current psychotropics carefully including drug interactions. Risk benefit ratio favors no change other than as noted in my dictated progress note. Diagnosis: Problems: (1) Impulse control disorder, unspecified (2) Anxiety disorder, unspecified (3) Major depressive disorder with psychotic features RACHEL SHAH MD Dec 07, 2019 23:16
[2019-12-08 05:00] VITALS: BP 133/72
[2019-12-08] MEDS: MULTIVITAMIN with MINERAL TABLET. PO SCH (08:08)
[2019-12-08] MEDS: TAMSULOSIN 0.4 MG CAP.ER.24H. PO SCH (08:08)
[2019-12-08] MEDS: SERTRALINE 50 MG TABLET. PO SCH (08:08)
[2019-12-08] MEDS: NYSTATIN TOPICAL POWDER 15GM BOTTLE. TP SCH ×2 (09:00→21:00)
[2019-12-08] MEDS: VITS A & D/LANOLIN TOPICAL OINTMENT 42GM TUBE. TP SCH ×2 (09:00→21:00)
--- NOTE | 2019-12-08 10:29 | NUR ---
Pt denies SI/HI. He is compliant with his medications and assessment. Pt is calm, cooperative, compliant. No agitation, no aggression, no hallucinations, no delusions.
[2019-12-08 15:00] VITALS: BP 125/73
[2019-12-08] MEDS: QUEtiapine 25 MG TABLET. PO SCH (21:42)
[2019-12-08] MEDS: MIRTAZAPINE ODT 15 MG TAB.RAPDIS. PO SCH (21:42)
--- NOTE | 2019-12-08 22:10 | PDOC ---
Exam Note: Nick Note: Please also refer to the separate dictated note~for this date of service dictated separately.~Patient seen individually. Discussed the patient with Nursing staff reviewed the chart.~Reviewed interim history and current functioning. Reviewed vital signs,~Labs/ Radiology~and current medications noted below. Continue current treatment with the changes noted in the dictated addendum note Assessment: Vital Signs/I&O: Vital Signs Date Time Temp Pulse Resp B/P (MAP) Pulse Ox O2 Delivery O2 Flow Rate FiO2 12/08/19 15:00 98.0 90 19 125/73 (90) 96 Room Air I & O 12/07/19 12/07/19 12/08/19 15:00 23:00 07:00 Intake Total 600 ml 480 ml Balance 600 ml 480 ml Current Medications: I have reviewed the current psychotropics carefully including drug interactions. Risk benefit ratio favors no change other than as noted in my dictated progress note. Diagnosis: Problems: (1) Impulse control disorder, unspecified (2) Anxiety disorder, unspecified (3) Major depressive disorder with psychotic features RACHEL SHAH MD Dec 08, 2019 22:10
--- NOTE | 2019-12-08 22:37 | NUR ---
Patient is in his room on assumption of care. He is pleasant, interactive and appropriate. Conversed with this nurse about the trees changing color for fall and how much he enjoys looking at them. Compliant with assessments and medications taken whole. Denies any pain or discomfort. Denies SI/HI. Patient appears to be sleeping at present time. Will continue to monitor.
[2019-12-09 06:00] VITALS: BP 152/77
[2019-12-09] MEDS: TAMSULOSIN 0.4 MG CAP.ER.24H. PO SCH (08:39)
[2019-12-09] MEDS: MULTIVITAMIN with MINERAL TABLET. PO SCH (08:39)
[2019-12-09] MEDS: SERTRALINE 50 MG TABLET. PO SCH (08:39)
[2019-12-09] MEDS: VITS A & D/LANOLIN TOPICAL OINTMENT 42GM TUBE. TP SCH ×2 (08:40→20:43)
[2019-12-09] MEDS: NYSTATIN TOPICAL POWDER 15GM BOTTLE. TP SCH ×2 (08:40→20:43)
--- NOTE | 2019-12-09 13:24 | NUR ---
Pt is calm, cooperative, compliant. No agitation, no aggression, no hallucinations, no delusions. Pt denies SI/HI. He is compliant with his medications and assessment.
--- NOTE | 2019-12-09 15:13 | NUR ---
WEEKLY ACTIVITY THERAPY NOTE Date of Admission: 11/29 Date of AT Assessment: 12/02 Precipitating behaviors that initiated intake and admission: making SI/HI statements toward self and sister (financial DPOA), aggressive towards staff, uncooperative, paranoid, refusing cares and meals Goal aimed: to increase engagement Initial Goal: Pt. will participate in at least three individual Activity Therapy sessions before discharge. Weekly progress towards goal: did not achieve Group participation level: Moderate in two groups Weekly highlights: joined group, wanted to share some exercises with the group Behaviors observed: talkative/ likes to tell stories, great at guessing TV shows on afternoon before psych evaluation, laughed a few times during the movie on Monday, otherwise content in his room, at times had blanket over his head/ body due to colder room temperature Plan: change goal to: Pt. will participate in at least three individual or Activity Therapy groups per week Beneficial adaptations:
[2019-12-09 15:51] VITALS: BP 118/68
[2019-12-09] MEDS: QUEtiapine 25 MG TABLET. PO SCH (20:42)
[2019-12-09] MEDS: MIRTAZAPINE ODT 15 MG TAB.RAPDIS. PO SCH (20:43)
--- NOTE | 2019-12-09 21:00 | NUR ---
Patient is in his room on assumption of care. He is pleasant, interactive and appropriate. Compliant with assessments and medications taken whole. Denies any pain or discomfort. Denies SI/HI. Patient appears to be sleeping at present time. Will continue to monitor.
--- NOTE | 2019-12-09 21:58 | PDOC ---
Exam Note: Nick Note: Please also refer to the separate dictated note~for this date of service dictated separately.~Patient seen individually. Discussed the patient with Nursing staff reviewed the chart.~Reviewed interim history and current functioning. Reviewed vital signs,~Labs/ Radiology~and current medications noted below. Continue current treatment with the changes noted in the dictated addendum note Assessment: Vital Signs/I&O: Vital Signs Date Time Temp Pulse Resp B/P (MAP) Pulse Ox O2 Delivery O2 Flow Rate FiO2 12/09/19 15:51 98.2 60 18 118/68 (85) 96 12/09/19 06:00 Room Air I & O 12/08/19 12/08/19 12/09/19 15:00 23:00 07:00 Intake Total 780 ml 460 ml Balance 780 ml 460 ml Current Medications: I have reviewed the current psychotropics carefully including drug interactions. Risk benefit ratio favors no change other than as noted in my dictated progress note. Diagnosis: Problems: (1) Impulse control disorder, unspecified (2) Anxiety disorder, unspecified (3) Major depressive disorder with psychotic features RACHEL SHAH MD Dec 09, 2019 21:58
--- NOTE | 2019-12-10 06:24 | PDOC ---
Exam Note: Nick Note: This note is a late entry for 12/08/2019 covers elements not covered in my initial note. Subjective: The patient was reviewed on telehealth rounds in the evening of 12/08/2019 with Layla MCKEON. Discussed with nursing staff, reviewed the chart. He has done well previous night. He slept 8-1/2 hours, has done well during the day, remains hyperverbal, somewhat anxious. Reportedly, he has had neuropsychological testing with Dr. Chaparro which indicated significant cognitive deficits and recommendation is that his capacity to make decisions for himself is compromised and he should seek the assistance of his power of assistant district attorney decisions. Review of Systems: Ambulation impaired in wheelchair. He is hard of hearing. No CV, , pulmonary, eye system symptoms on review. Mental Status Exam: The patient is reasonably oriented. He is very hyperverbal, difficult to redirect while talking, part of this is hard of hearing, otherwise, insight is limited. Judgment is intact to standard questioning. Attention span is short. Language function intact. Mood and affect remains somewhat anxious, labile. Laboratory Data: Reviewed. 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 Impulse control disorder. Plan: No change from initial note. Assessment: Vital Signs/I&O: Vital Signs Date Time Temp Pulse Resp B/P (MAP) Pulse Ox O2 Delivery O2 Flow Rate FiO2 12/09/19 15:51 98.2 60 18 118/68 (85) 96 12/09/19 06:00 Room Air I & O 12/09/19 12/09/19 12/10/19 15:00 23:00 07:00 Intake Total 600 ml 240 ml Balance 600 ml 240 ml Current Medications: I have reviewed the current psychotropics carefully including drug interactions. Risk benefit ratio favors no change other than as noted in my dictated progress note. 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
[2019-12-10 06:25] VITALS: BP 113/70
--- NOTE | 2019-12-10 06:37 | NUR ---
During morning care, patient was found to be dry. Bladder scan revealed over 1000mL in his bladder. Dr. Mosquera notified. Orders received to place and maintain rudd catheter and change daily dose of Flomax from 0.4mg to 0.8mg. Rudd inserted by LINDA Bowman, and 1300mL of dark yellow clear urine drained. Will continue to monitor.
--- NOTE | 2019-12-10 06:45 | PDOC ---
Exam Note: Nick Note: This note is a late entry for 12/09/2019 covers elements not covered in my initial note. Subjective: The patient was reviewed on telehealth rounds in the morning of 12/09/2019 for treatment team meeting with Scooby, social service staff, Layla MCKEON, Nahomy Contreras, social service. Also reviewed on telehealth rounds in the evening of 12/08. Discussed with nursing staff, reviewed the chart. The patient is sleeping 8-9 hours. Appetite is 100%. COVID screen on 12/05 is pending. He has been quite hyperverbal, talking about touring [place]. 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 He has been otherwise pleasant, cooperative, somewhat hyperverbal at times. Dr. Chaparro has completed the neuropsychological testing indicating he needs assistance with making decisions due to his cognitive capacity issues. Review of Systems: He is hard of hearing. Ambulation impaired in wheelchair. No CV, , pulmonary, eye system symptoms on review. Mental Status Exam: The patient is reasonably oriented. He is quite hyperverb al but not as much as yesterday. Speech is coherent, has some latency. Abstraction is fair. Computation impaired. Language function intact. Mood and affect is still somewhat anxious, depressed. No suicidal ideation. Laboratory Data: Reviewed. 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 Impulse control disorder. Plan: No change from initial note. Assessment: Vital Signs/I&O: Vital Signs Date Time Temp Pulse Resp B/P (MAP) Pulse Ox O2 Delivery O2 Flow Rate FiO2 12/10/19 06:25 97.7 73 20 113/70 (84) 96 Room Air I & O 12/09/19 12/09/19 12/10/19 15:00 23:00 07:00 Intake Total 600 ml 240 ml Balance 600 ml 240 ml Current Medications: I have reviewed the current psychotropics carefully including drug interactions. Risk benefit ratio favors no change other than as noted in my dictated progress note. 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
[2019-12-10] MEDS: VITS A & D/LANOLIN TOPICAL OINTMENT 42GM TUBE. TP SCH ×2 (09:00→19:49)
[2019-12-10] MEDS: NYSTATIN TOPICAL POWDER 15GM BOTTLE. TP SCH ×2 (09:00→19:49)
[2019-12-10] MEDS: TAMSULOSIN 0.4 MG CAP.ER.24H. PO SCH (09:44)
[2019-12-10] MEDS: MULTIVITAMIN with MINERAL TABLET. PO SCH (09:44)
[2019-12-10] MEDS: SERTRALINE 50 MG TABLET. PO SCH (09:44)
--- NOTE | 2019-12-10 10:21 | NUR ---
LUCIA contacted Neetu at the [facility] to give her an update on pt. LUCIA informed the [facility] that pt will go this week and will clarify the date and time with the facility. Once that happens, LUCIA will plan to notify Neetu.
--- NOTE | 2019-12-10 10:53 | NUR ---
LUCIA contacted Sheree at [facility] re: an update on pt. She reports that she did not get SW fax so LUCIA will send that back over for them to review. Pt will tentatively look at for discharge in which the facility will look at picking pt up; time ROBYN and Sheree will contact LUCIA with that time after reviewing the packet.
--- NOTE | 2019-12-10 11:20 | NUR ---
Nursing note: Pt laying in his bed when approached for morning med pass and assessment. He is pleasant, med compliant, and cooperative. 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 He denies pain or discomfort at this time, says he feels "really good with that thing in there because I don't have to get up to go to the bathroom all the time", referring to his catheter that was placed d/t retention. Pt is currently up in his wheelchair. Will continue to monitor.
[2019-12-10 16:15] VITALS: BP 130/80
[2019-12-10] MEDS: MIRTAZAPINE ODT 15 MG TAB.RAPDIS. PO SCH (19:40)
[2019-12-10] MEDS: QUEtiapine 25 MG TABLET. PO SCH (19:40)
--- NOTE | 2019-12-10 21:30 | NUR ---
Nursing Note: Location of Patient during Assessment: Pt lying in bed, awake at shift change. Behaviors Mood and Affect this shift: Pt calm, pleasant, and interactive when approached. Medication Compliant: Compliant with medications administered whole. Assessment Compliant: Cooperative and compliant with assessment. Sofia to d/d, with adequate urine output. Response After Interventions: Pt calm, resting quietly in bed with eyes closed at this time.
--- NOTE | 2019-12-10 21:50 | PDOC ---
Exam Note: Nick Note: Please also refer to the separate dictated note~for this date of service dictated separately.~Patient seen individually. Discussed the patient with Nursing staff reviewed the chart.~Reviewed interim history and current functioning. Reviewed vital signs,~Labs/ Radiology~and current medications noted below. Continue current treatment with the changes noted in the dictated addendum note Assessment: Vital Signs/I&O: Vital Signs Date Time Temp Pulse Resp B/P (MAP) Pulse Ox O2 Delivery O2 Flow Rate FiO2 12/10/19 16:15 97.9 76 16 130/80 (97) 97 12/10/19 06:25 Room Air I & O 12/09/19 12/09/19 12/10/19 15:00 23:00 07:00 Intake Total 600 ml 240 ml Balance 600 ml 240 ml Current Medications: Meds: Current Medications Medications (Trade) Dose Ordered Sig/Jovita Route PRN Reason Start Time Stop Time Status Last Admin Dose Admin Tamsulosin HCl (Flomax) 0.8 mg DAILY PO 12/10/19 09:00 12/10/19 09:44 I have reviewed the current psychotropics carefully including drug interactions. Risk benefit ratio favors no change other than as noted in my dictated progress note. 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
[2019-12-11] MEDS ORDERED: MAG-95 PO (04:26)
[2019-12-11] MEDS ORDERED: MAGN24003 PO (04:27)
[2019-12-11] MEDS ORDERED: METH57CR17 TP (04:28)
[2019-12-11] MEDS ORDERED: NYST15PO9 TP (04:29)
[2019-12-11] MEDS ORDERED: MIRT7.5T8 PO (04:29)
[2019-12-11] MEDS ORDERED: QUET25TA5 PO (04:30)
[2019-12-11] MEDS ORDERED: SERT50TA PO (04:30)
[2019-12-11] MEDS ORDERED: [UNRECOGNIZED DRUG - CODE] TP (04:31)
[2019-12-11 06:16] VITALS: BP 132/71
[2019-12-11] MEDS: SERTRALINE 50 MG TABLET. PO SCH (09:43)
[2019-12-11] MEDS: VITS A & D/LANOLIN TOPICAL OINTMENT 42GM TUBE. TP SCH ×2 (09:44→20:18)
[2019-12-11] MEDS: MULTIVITAMIN with MINERAL TABLET. PO SCH (09:44)
[2019-12-11] MEDS: TAMSULOSIN 0.4 MG CAP.ER.24H. PO SCH (09:44)
[2019-12-11] MEDS: NYSTATIN TOPICAL POWDER 15GM BOTTLE. TP SCH ×2 (09:44→20:18)
--- NOTE | 2019-12-11 10:25 | NUR ---
Patient was sitting in his wheelchair this day. He was pleasant and social during assessment and medication pass. He stated he was glad that he came here, that he feels better. Denies being angry with his sister, denies SI and HI and has shown no aggression towards staff. He is cooperative, taking his medications and eating meals. He has a rudd catheter to manage urinary retention and denies pain when asked.
--- NOTE | 2019-12-11 11:19 | NUR ---
[facility] Social Work Discharge Planning Form Patient Name EDD FRANKLIN Admit Date: 30 November 2019 DISCHARGE PLAN Discharge Destination: Pt to discharge back to [facility] 12/12/2019 Care Assessment: N/A Level II Assessment: N/A Transportation: Facility to pick pt up at 0800AM Special Instructions/Notes: Please fax all discharge orders, medication list and discharge summary to the fax number listed below. DISCHARGE TO FACILITY Facility: [facility] Address: [address] [place] [address] Contact Name: Olaf Ferrara, Administration: Contact Name: Nisreen Mary RN: PCP: Dr. Ken Hinson
--- NOTE | 2019-12-11 12:17 | NUR ---
Patient COVID 19 test came back negative.
[2019-12-11 15:43] VITALS: BP 142/76
[2019-12-11] MEDS: QUEtiapine 25 MG TABLET. PO SCH (20:13)
[2019-12-11] MEDS: MIRTAZAPINE ODT 15 MG TAB.RAPDIS. PO SCH (20:13)
--- NOTE | 2019-12-11 21:42 | NUR ---
Nursing Note: Location of Patient during Assessment: Pt lying in bed, awake at shift change. Behaviors Mood and Affect this shift: Pt calm, pleasant, and interactive when approached. Medication Compliant: Compliant with medications administered whole. Assessment Compliant: Cooperative and compliant with assessment. Sofia to d/d remains in place. Response After Interventions: Pt calm, resting quietly in bed with eyes closed at this time.
--- NOTE | 2019-12-11 22:03 | PDOC ---
Exam Note: Nick Note: Please also refer to the separate dictated note~for this date of service dictated separately.~Patient seen individually. Discussed the patient with Nursing staff reviewed the chart.~Reviewed interim history and current functioning. Reviewed vital signs,~Labs/ Radiology~and current medications noted below. Continue current treatment with the changes noted in the dictated addendum note Assessment: Vital Signs/I&O: Vital Signs Date Time Temp Pulse Resp B/P (MAP) Pulse Ox O2 Delivery O2 Flow Rate FiO2 12/11/19 15:43 98.5 56 18 142/76 (98) 96 12/10/19 06:25 Room Air I & O 12/10/19 12/10/19 12/11/19 15:00 23:00 07:00 Intake Total 840 ml 240 ml Output Total 1100 ml 800 ml 500 ml Balance -260 ml -560 ml -500 ml Current Medications: I have reviewed the current psychotropics carefully including drug interactions. Risk benefit ratio favors no change other than as noted in my dictated progress note. Diagnosis: Problems: (1) Anxiety disorder, unspecified (2) Major depressive disorder with psychotic features (3) Impulse control disorder, unspecified RACHEL SHAH MD Dec 11, 2019 22:03
[2019-12-12 06:13] VITALS: BP 148/79
--- NOTE | 2019-12-12 06:34 | PDOC ---
Exam Note: Nick Note: This note is a late entry for 12/10/2019 covers elements not covered in my initial note. Subjective: The patient was seen face to face in the evening of 12/10/2019. Discussed with nursing staff, reviewed the chart. The patient is less hyperverbal, less anxious, reasonably oriented. Review of Systems: Ambulation impaired in wheelchair. No CV, , pulmonary, eye, ENT system symptoms on review. Mental Status Exam: The patient is reasonably oriented. He is less hyperverbal. He is wanting nursing staff to assist him with the urinary bag and seems appropriate in waiting for this. Abstraction is fair. Computation impaired. Language function intact. Mood and affect is less anxious. Laboratory Data: Reviewed. 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 Impulse control disorder. Plan: No change from initial note. Assessment: Vital Signs/I&O: Vital Signs Date Time Temp Pulse Resp B/P (MAP) Pulse Ox O2 Delivery O2 Flow Rate FiO2 12/12/19 06:13 98.2 79 16 148/79 (102) 96 12/10/19 06:25 Room Air I & O 12/11/19 12/11/19 12/12/19 15:00 23:00 07:00 Intake Total 580 ml 360 ml Output Total 600 ml 700 ml Balance 580 ml -240 ml -700 ml Current Medications: I have reviewed the current psychotropics carefully including drug interactions. Risk benefit ratio favors no change other than as noted in my dictated progress note. Diagnosis: Problems: (1) Anxiety disorder, unspecified (2) Major depressive disorder with psychotic features (3) Impulse control disorder, unspecified RACHEL SHAH MD Dec 12, 2019 06:34
--- NOTE | 2019-12-12 06:50 | PDOC ---
Exam Note: Nick Note: This note is a late entry for 12/11/2019 covers elements not covered in my initial note. Subjective: The patient was seen face to face in the evening of 12/11/2019 with Rain MCKEON. Discussed with nursing staff, reviewed the chart. The patient slept 7-1/4 hours previous night. He has been quite appropriate on the unit, somewhat hyperverbal and anxious at times but redirectable. Review of Systems: Ambulation impaired in wheelchair. No CV, , pulmonary, eye, ENT system symptoms on review. Mental Status Exam: The patient is reasonably oriented. He is less hyperverbal as I met with him in his room. He is wanting nursing staff to assist him with the urinary bag and seems appropriate in waiting for this. Abstraction is fair. Computation impaired. Language function intact. Mood and affect is anxious. Laboratory Data: Reviewed. 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 Impulse control disorder. Plan: No change from initial note. Tentative discharge back to retirement on 12/12/2019. Assessment: Vital Signs/I&O: Vital Signs Date Time Temp Pulse Resp B/P (MAP) Pulse Ox O2 Delivery O2 Flow Rate FiO2 12/12/19 06:13 98.2 79 16 148/79 (102) 96 12/10/19 06:25 Room Air I & O 12/11/19 12/11/19 12/12/19 15:00 23:00 07:00 Intake Total 580 ml 360 ml Output Total 600 ml 700 ml Balance 580 ml -240 ml -700 ml Current Medications: I have reviewed the current psychotropics carefully including drug interactions. Risk benefit ratio favors no change other than as noted in my dictated progress note. Diagnosis: Problems: (1) Anxiety disorder, unspecified (2) Major depressive disorder with psychotic features (3) Impulse control disorder, unspecified RACHEL SHAH MD Dec 12, 2019 06:50
--- NOTE | 2019-12-12 07:28 | NUR ---
morning medications given early r/t patients 0800 discharge.
[2019-12-12] MEDS: SERTRALINE 50 MG TABLET. PO SCH (07:36)
[2019-12-12] MEDS: MULTIVITAMIN with MINERAL TABLET. PO SCH (07:36)
[2019-12-12] MEDS: NYSTATIN TOPICAL POWDER 15GM BOTTLE. TP SCH (07:37)
[2019-12-12] MEDS: VITS A & D/LANOLIN TOPICAL OINTMENT 42GM TUBE. TP SCH (07:37)
[2019-12-12] MEDS: TAMSULOSIN 0.4 MG CAP.ER.24H. PO SCH (07:37)
--- NOTE | 2019-12-12 09:45 | NUR ---
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
--- NOTE | 2019-12-12 10:51 | NUR ---
Transition Record was faxed to follow-up provider with the following elements: Reason for admission, procedures, tests, principal diagnosis, pending studies, patient instructions, 19/09 contact information for unit, phone number to obtain pending test results, plan for follow-up care, physician follow-up, advanced directive information, and medication list with dose, duration and instructions. This information was included in the following documents: History and physical, lab results, study results, progress notes, social work planning form, DC instruction form, patient visit summary, and medication reconciliation form. Date & time record faxed: 12/11/19 1800 Record faxed to: [facility] [phone] Record discussed with/ report given to: Annalisa nurse at [facility] [phone] Patient was picked up by facility at 0945.
--- NOTE | 2019-12-12 22:21 | PDOC ---
Exam Note: Nick Note: Please also refer to the separate dictated note~for this date of service dictated separately.~Patient seen individually. Discussed the patient with Nursing staff reviewed the chart.~Reviewed interim history and current functioning. Reviewed vital signs,~Labs/ Radiology~and current medications noted below. Continue current treatment with the changes noted in the dictated addendum note Assessment: Vital Signs/I&O: Vital Signs Date Time Temp Pulse Resp B/P (MAP) Pulse Ox O2 Delivery O2 Flow Rate FiO2 12/12/19 06:13 98.2 79 16 148/79 (102) 96 12/10/19 06:25 Room Air I & O 12/11/19 12/11/19 12/12/19 15:00 23:00 07:00 Intake Total 580 ml 360 ml Output Total 600 ml 700 ml Balance 580 ml -240 ml -700 ml Current Medications: I have reviewed the current psychotropics carefully including drug interactions. Risk benefit ratio favors no change other than as noted in my dictated progress note. Diagnosis: Problems: (1) Anxiety disorder, unspecified (2) Major depressive disorder with psychotic features (3) Impulse control disorder, unspecified RACHEL SHAH MD Dec 12, 2019 22:21
--- NOTE | 2019-12-13 21:31 | DS ---
DATE OF DISCHARGE: 12/12/2019 DISCHARGE SUMMARY/PSYCHIATRIC PROGRESS NOTE REASON FOR ADMISSION: Please refer to the admission history for details. Briefly, the patient is an 89-year-old male referred to us from [facility] after the [facility] contacted us after the patient was making suicidal and homicidal statements towards hurting himself and his sister, who is his DPOA. He was frustrated, angry, paranoid, aggressive towards staff, uncooperative, refusing cares and meals. He had failed outpatient psychiatric interventions resulting in this referral. SIGNIFICANT FINDINGS AND CLINICAL COURSE: Following admission, the patient was seen daily individually by myself from a psychiatric standpoint, medical followup with Dr. Mosquera/Dr. Chu. The patient was quite angry, irritable, labile, depressed. He denied suicidal or homicidal ideation shortly into the hospitalization. Adjustments were made in his psychotropics. He seemed to respond to a combination of Zoloft 50 mg a day, Remeron 7.5 mg at bedtime, trazodone 25 mg t.i.d. p.r.n. anxiety, 50 mg p.r.n. at bedtime, Seroquel 25 mg at bedtime prior to discharge on 12/12/2019. REVIEW OF SYSTEMS: Ambulation impaired. No CV, , pulmonary, eye, ENT system symptoms on review. MENTAL STATUS EXAM: Reasonably oriented. Speech is coherent, rapid at times. Abstraction fair, computation impaired, language function intact, attention span short. Mood and affect improved. No suicidal or homicidal ideation at discharge. CONDITION AT DISCHARGE: Improved. FINAL DIAGNOSES: Major depressive disorder with psychotic features; anxiety disorder, unspecified; impulse control disorder, unspecified. Rest unchanged from admission. DISCHARGE MEDICATIONS: Please refer to the [facility]. DISCHARGE INSTRUCTIONS: [facility] Time for discharge today management greater than 30 minutes. RACHEL SHAH MD DR: GARETT/hayley JOB#: [id number] / [id number]
--- NOTE | 2019-12-14 06:33 | PDOC ---
Exam Note: Nick Note: This note is a late entry for DOS 12/10/2019 and an addendum to the progress note dictated earlier for 12/10/2019. Subjective: The patient was seen face to face in the evening of 12/10/2019 with Loni MCKEON. He slept 8 hours. He attended some physical therapy. Rest information unchanged as previously dictated. Assessment: Vital Signs/I&O: Vital Signs Date Time Temp Pulse Resp B/P (MAP) Pulse Ox O2 Delivery O2 Flow Rate FiO2 12/12/19 06:13 98.2 79 16 148/79 (102) 96 12/10/19 06:25 Room Air Current Medications: I have reviewed the current psychotropics carefully including drug interactions. Risk benefit ratio favors no change other than as noted in my dictated progress note. Diagnosis: Problems: (1) Anxiety disorder, unspecified (2) Major depressive disorder with psychotic features (3) Impulse control disorder, unspecified RACHEL SHAH MD Dec 14, 2019 06:33
== END 2019-12-12 09:45 | disposition short-term general hospital (02) | DRG 885 ==
LOC: GEROPSY 19:11
PROVIDERS: ADMIT Psychiatry & Neurology Psychiatry; ATTEND Psychiatry & Neurology Psychiatry
DX: F32.3 Major depressive disorder, single episode, severe with psychotic features (principal); F41.9 Anxiety disorder, unspecified; E11.9 Type 2 diabetes mellitus without complications; F63.9 Impulse disorder, unspecified; H91.90 Unspecified hearing loss, unspecified ear; N40.0 Benign prostatic hyperplasia without lower urinary tract symptoms; Z66 Do not resuscitate; M19.90 Unspecified osteoarthritis, unspecified site; Z79.899 Other long term (current) drug therapy; Z20.828 Contact with and (suspected) exposure to other viral communicable diseases
CPT/HCPCS: 36415; 80053; 81001; 85025; 87077; 87086; 87186; 93005; 97110; 97530; U0003-CS